=== PATIENT | female | born 1970 | race Caucasian/White ===

== ENCOUNTER 2017-05-11 09:32 | Outpatient (CLI) | payer BC | END 2017-05-11 09:33 | disposition home or self-care (01) | LOC: BICRAD 09:32 | PROVIDERS: ATTEND Family Medicine | DX: S89.91XA Unspecified injury of right lower leg, initial encounter (principal); W19.XXXA Unspecified fall, initial encounter ==

== ENCOUNTER 2017-05-19 15:08 | Outpatient (CLI) | payer BC ==
--- NOTE | 2017-05-19 20:45 | MRI ---
RIGHT SHOULDER MRI WITHOUT IV CONTRAST 05/19/17 HISTORY: 46-year-old female with right shoulder pain following a fall three weeks ago with concern for rotator cuff tear. There are some AC joint arthrosis changes with some mild fat stranding in the subacromial subdeltoid bursa. There appears to be a fairly high grade partial thickness tear of the supraspinatus tendon pro bably a nonretracted primarily bursal sided tear but this may well have a punctate full thickness com ponent but no evidence of associated retraction. There is some supraspinatus, infraspinatus, and subs capularis tendinopathy. There is some abnormal high signal change at the insertion of the subscapular is tendon, evidence for undersurface and delaminating tear/tears. There is some minimal surrounding e fahad at the subscapularis tendon insertion and extending along the margin of the inferior bicipital r ecess. Rotator cuff muscles demonstrate some moderate muscle volume loss of the upper subscapularis m uscle but the remaining muscles are unremarkable. There is some minimal abnormal increased signal ass ociated with the superior labrum chondral labral junction region in the mid portion extending posteri michael, evidence for a SLAP type tear. There is some focal marrow signal involving the lesser tuberosit y. Probably a subchondral cyst. IMPRESSION: High grade partial thickness tear versus a nonreactive punctate full thickness tear at the supraspina tus tendon insertion region. Undersurface and delaminating tear/tears of the subscapularis tendon wit h associated tendinopathy as well as moderate muscle volume loss of the upper portion of the subscapu andres muscle and some peritendinous edema around the insertion of the subscapularis tendon and extend ing down the bicipital recess. Intact biceps tendon. Evidence for abnormal signal involving the super ior labrum and associated SLAP tear. POS: [facility]
== END 2017-05-19 15:09 | disposition home or self-care (01) ==
LOC: SCSMRI 15:08
PROVIDERS: ATTEND Family Medicine
DX: S46.011A Strain of muscle(s) and tendon(s) of the rotator cuff of right shoulder, initial encounter (principal); S43.492A Other sprain of left shoulder joint, initial encounter; M75.92 Shoulder lesion, unspecified, left shoulder

== ENCOUNTER 2017-10-11 08:44 | Outpatient (CLI) | payer BC ==
[2017-10-11] MEDS ORDERED: Lidocaine 2% Jelly 5 ML TUBE ONE (09:00)
--- NOTE | 2017-10-11 11:02 | HP ---
DATE OF SERVICE: 10/11/2017 HISTORY OF PRESENT ILLNESS: Ms. Viky Urbina is a very pleasant 47-year-old who presents to [facility] for evaluation of an ulceration of the plantar surface of the right foot in the region of the first metatarsophalangeal joint. The patient states that the ulceration has been present [facility] e 04/2017. She states that the ulceration began after she removed tape from the bottom of her foot p ulling skin off with the tape. The patient has been seen by Dr. Lundberg for the ulceration since July of this year. The patient states that the wound has been treated with serial debridement. She stat es that she has taken p.o. antibiotics after cultures of the wound were obtained. She states that on two occasions she was also given antibiotics for an apparent infectious process associated with the wound. The patient states she was last seen by Dr. Lundberg on 09/21/2017. The patient states she has been performing dressing changes of the Kaelyn Gel followed by gauze and Coban. PAST MEDICAL HISTORY: 1. Hypertension. 2. Attention deficit hyperactivity disorder. 3. History of pancreatitis. 4. Ankylosing spondylitis. 5. Diabetes mellitus. PAST SURGICAL HISTORY: 1. TAHBSO. 2. Cholecystectomy. 3. Tubal ligation. 4. x2. 5. Surgery for stress urinary incontinence. 6. L4-L5 fusion. 7. Right shoulder surgery. MEDICATIONS: 1. Adderall. 2. Bystolic. 3. Doxepin. 4. Lexapro. 5. Gabapentin. 6. Hydrocodone. 7. Invokana. 8. Leflunomide. 9. Lisinopril/HCTZ. 10. Pramipexole. 11. Progesterone. 12. Remicade. 13. Savella. 14. Sulfasalazine. 15. Victoza. 16. Vyvanse. 17. Zolpidem. 18. vitamins. ALLERGIES: No known diagnosed allergies. SOCIAL HISTORY: Negative for tobacco use. The patient admits to the consumption of 1-2 drinks every 4-6 months. FAMILY HISTORY: Significant for diabetes mellitus. The patient's mother and father were both diagno sed with diabetes mellitus. Family history is also significant for coronary artery disease. The pat ient states that her mother and father were both diagnosed with coronary artery disease. PHYSICAL EXAMINATION: VITAL SIGNS: Temperature 98.3, pulse 89, respirations 19, blood pressure 130/79. Accu-Chek 143. GENERAL: A 47-year-old female sitting on table in examination room in no acute distress. HEENT: Normocephalic, atraumatic. NECK: No nuchal rigidity. CHEST: Clear to auscultation. CARDIOVASCULAR: Regular rate and rhythm. ABDOMEN: Soft. EXTREMITIES: An ulceration of the plantar surface of the right foot in the region of the first metat arsophalangeal joint is present. The dimensions of the wound are approximately 0.8 x 0.8 cm. Very l ittle granulation tissue is visible within the wound margins. Necrotic and nonviable tissue present within the wound margins was debrided with an excisional full-thickness debridement with the use of a curette. No purulent drainage is associated with the wound. Desiccated tissue and undermining at t he periphery of the wound were eliminated with the use of scissors. No erythema of the skin surround ing the wound is present. No maceration of the skin of the periwound is noted. A dorsalis pedis pul se is easily palpable on the right. No significant edema of the right foot is present on exam today. NEUROLOGIC: Grossly nonfocal. ASSESSMENT AND PLAN: 1. 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 Dressing changes of Promogran, Aquacel AG and bordered gauze will be initiated today. These dressing changes are to be performed on a daily basis after cleansing and irrigation. Arrangements will be made for the home delivery of dressing supplies. I will see Ms. Carlitos golden in 1 week. No antibiotics will be prescribed today based upon the appearance of the wound. The katie souza has also been given a prescription for a knee scooter. 2. Hypertension. 3. ADHD. 4. History of pancreatitis. 5. Ankylosing spondylitis. 6. Diabetes mellitus. The patient's Accu-Chek in clinic today is 143. The patient has been told th at for optimal wound healing, her blood glucoses should remain below 150.
== END 2017-10-11 08:45 | disposition home or self-care (01) ==
LOC: WCC 08:44
PROVIDERS: ATTEND Family Medicine
DX: E11.621 Type 2 diabetes mellitus with foot ulcer (principal); L97.519 Non-pressure chronic ulcer of other part of right foot with unspecified severity; I10 Essential (primary) hypertension; F90.9 Attention-deficit hyperactivity disorder, unspecified type; M45.9 Ankylosing spondylitis of unspecified sites in spine; E11.21 Type 2 diabetes mellitus with diabetic nephropathy; Z90.49 Acquired absence of other specified parts of digestive tract; Z98.890 Other specified postprocedural states; Z98.1 Arthrodesis status; Z79.899 Other long term (current) drug therapy
CPT/HCPCS: 11042; 36416; 99203; G0463

== ENCOUNTER 2017-10-16 20:24 | Inpatient (IN) | payer BC ==
[2017-10-16 21:39] LABS: #Basophils 0.1 thou/uL (0.0-0.2); #Eosinphils 0.1 thou/uL (0.0-0.7); #Lymphocytes 2.9 thou/uL (1.20-3.40); #Neutrophils 4.5 thou/uL (1.40-6.50); %Basophils 1.5 % (0.0-1.0); %Eosinophils 1.6 % (0.0-10.0); %Lymphocytes 33.1 % (21.0-51.0); %Monocytes 11.8 % (0.0-10.0); Hemoglobin 13.8 g/dL (12.0-16.0); Mean Corpuscular Hemoglobin 30.6 pg (27.0-31.0); Mean Corpuscular Volume 90.1 fl (81.0-99.0); Platelet Count 240 thou/uL (130-400); RBC Distribution Width 12.9 % (11.5-14.5); Red Blood Cell (RBC) Count 4.49 mill/uL (4.20-5.40); White Blood Cell (WBC) Count 8.7 thou/uL (4.8-10.8)
[2017-10-16 21:47] LABS: PTT 26.9 SEC (22.9-36.1); Prothrombin Time 13.1 SEC (12.0-14.7)
[2017-10-16 21:57] LABS: ALT (SGPT) 98 U/L (8-55); AST (SGOT) 63 U/L (5-34); Albumin 4.8 g/dL (3.5-5.0); Alkaline Phosphatase 92 U/L (40-150); Anion Gap 17 mmol/L (10-20); BUN (Urea Nitrogen) 20 mg/dL (7.0-18.7); Bilirubin, Total 0.5 mg/dL (0.2-1.2); Calc. Creatinine Clearance 0 mL/min (70-130); Calcium 10.4 mg/dL (7.8-10.44); Carbon Dioxide 25 mmol/L (22-29); Chloride 101 mmol/L (98-107); Estimated GFR-MDRD 48; Globulin 3.8 g/dL (2.4-3.5); Glucose 91 mg/dL (70-105); Lipase 63 U/L (8-78); Potassium 4.3 mmol/L (3.5-5.1); Protein, Total 8.6 g/dL (6.0-8.3); Sodium 139 mmol/L (136-145)
[2017-10-16] MEDS ORDERED: Morphine 5 MG/ML SYRINGE ONE (22:26)
[2017-10-16] MEDS ORDERED: Ondansetron HCl/PF 4 MG/2 ML Vial ONE (22:26)
[2017-10-16] MEDS ORDERED: Ciprofloxacin Lactate/D5W 400 mg/200 ml Premix ONE (22:41)
[2017-10-16] MEDS ORDERED: metroNIDAZOLE 500 MG/100 ML BAG ONE (22:41)
--- NOTE | 2017-10-16 22:44 | CT ---
ABDOMEN CT WITHOUT CONTRAST: PELVIC CT WITHOUT CONTRAST: HISTORY: Left lower quadrant pain. GI bleed. COMPARISON: 12/05/2010 TECHNIQUE: Abdomen and pelvis CT is performed without contrast. Coronal reformatted images are submitted for in terpretation. FINDINGS: ABDOMEN: The lung bases are clear. Normal heart size. No pericardial effusion. The descending tho racic aorta and abdominal aorta have a normal caliber. No periaortic fat stranding. The gallbladder is surgically absent. Limited evaluation of the solid organs due to lack of IV contrast. Hypoatten uation of the liver due to hepatic steatosis. The spleen, pancreas, and adrenal glands are grossly u nremarkable. No gastrohepatic, retrocrural, or periportal lymphadenopathy. No mesenteric mass, lymp hadenopathy, free air, or free fluid. Bilaterally, no hydronephrosis, nephrolithiasis, or perinephri c fat stranding. The bilateral ureters have normal caliber. No hydroureter, periureteral fat strand ing, or ureterolithiasis. Limited evaluation of the alimentary canal due to lack of oral contrast. Gastric mucosa, duodenum, and multiple normal caliber small bowel loops are noted. The ileocecal nicholas ction is normal. Normal caliber appendix. Scattered fecal material in a nondistended, nondilated co glenda. PELVIS: The uterus is surgically absent. No pelvic mass, lymphadenopathy, free air, or free fluid. The urinary bladder is unremarkable. There are uncomplicated fusion changes involving the L4 and L5 level. IMPRESSION: 1. No evidence of nephrolithiasis or obstructive uropathy. 2. Normal caliber appendix. POS: [facility]
[2017-10-17] MEDS ORDERED: Ondansetron HCl/PF 4 MG/2 ML Vial IVP PRN (00:15)
[2017-10-17] MEDS ORDERED: Dextrose 5 %-0.45 % NaCl 1,000 ML IV SCH (00:30)
[2017-10-17 01:01] VITALS: BMI 35.7
--- NOTE | 2017-10-17 01:09 | PDOC.FPRHP ---
- History of Present Illness Chief Complaint: BRBPR History of Present Illness: This is a 47 y/o F with PMHx of HTN, DM2, Ankylosing Spondylitis who presented to the ED due to sudden onset bright red blood per rectum. The patient reported that two days ago she started developing a sharp pain on the left side of her abdomen. It was a severe pain that she had to sit down for. The patient reports that the pain comes and goes, but has continued to hurt yesterday and had associated nausea with no vomiting. Then at 7pm yesterday evening she felt "wet " and went to the bathroom and passed a large blood clot per rectum, along with some bright red blood in the toilet bowl and on the toilet paper. The patient reports that since then she has continued to have blood whenever she wipes, but it is not as much as that first time, and no further clots. She reports that her abdominal pain has worsened and is an 8/10. She denies any fevers/chills. She has had an EGD and colonoscopy previously in 2013 for abdominal pain and they just found gastritis and hemorrhoids. She reports that she has known elevated liver enzymes and that she is scheduled for an ultrasound of the liver this Monday to further evaluate this. ED Course: The patient was evaluated in the ED in [facility] by Dr. Pérez and was given Cipro 400mg, Flagyl 500mg, Morphin 4mg, Zofran 4mg, and 1L NS - Allergies/Adverse Reactions Allergies Allergy/AdvReac Type Severity Reaction Status Date / Time No Known Allergies Allergy Verified 05/30/14 12:54 - Home Medications Medication Instructions Recorded Confirmed Type Lisinopril/Hydrochlorothiazide 2 tab PO DAILY 11/30/12 10/17/17 History [Lisinopril-Hctz 20-12.5 mg Tab] Dextroamphetamine/Amphetamine 10 mg PO DAILY PRN 04/08/14 10/17/17 History [Adderall] Doxepin HCl [Sinequan] 50 mg PO HS 04/08/14 10/17/17 History Escitalopram Oxalate [Lexapro] 40 mg PO DAILY 04/08/14 10/17/17 History Milnacipran HCl [Savella] 100 mg PO BID 04/08/14 10/17/17 History Nebivolol HCl [Bystolic] 10 mg PO QPM 05/30/14 10/17/17 History Progesterone,Micronized 100 mg PO HS 05/30/14 10/17/17 History [Progesterone] Zolpidem Tartrate [Ambien CR] 12.5 mg PO HS 05/30/14 10/17/17 History Canagliflozin [Invokana] 300 mg DAILY 10/17/17 10/17/17 History Gabapentin [Gabapentin] 600 mg HS 10/17/17 10/17/17 History Gabapentin [Neurontin] 400 mg HS 10/17/17 10/17/17 History HYDROcodone Bit/APAP 10/325 [[place]] 1 tab Q6HR 10/17/17 10/17/17 History Leflunomide [Arava] 10 mg HS 10/17/17 10/17/17 History Liraglutide [Victoza 3-Shahbaz] 1.8 mg QPM 10/17/17 10/17/17 History Lisdexamfetamine Dimesylate 60 mg PO DAILY PRN 10/17/17 10/17/17 History [Vyvanse] Pramipexole Di-HCl [Pramipexole 1 tab HS 10/17/17 10/17/17 History Dihydrochloride] sulfaSALAzine [Azulfidine] 1,000 mg BID 10/17/17 10/17/17 History - History PMHx: 1. HTN 2. DM2 3. Ankylosing Spondylitis 4. Fibromyalgia PSHx: 1. x2 2. BTL 3. Hysterectomy 4. Cholecystectomy 5. R Rotator Cuff sx 6. L4-L5 fusion 7. Bladder sling FHx: Mom and Dad - DM2 Social: Drinks socially, denies tobacco or drug use PCP: Dr. Lundberg - Review of Systems General: denies: fever/chills, weight/appetite/sleep changes Eyes: denies: eye pain, vision changes ENT: denies: nasal congestion, rhinorrhea Respiratory: denies: cough, shortness of breath Cardiovascular: denies: chest pain, palpitation Gastrointestinal: reports: nausea, diarrhea, abdominal pain, GI bleeding. denies: vomiting, constipation Genitourinary: denies: dysuria, polyuria Skin: denies: rashes, lesions Musculoskeletal: reports: pain, tenderness Neurological: denies: numbness, weakness Psychological: denies: anxiety, depression - Vital signs BP: 95/60 HR: 80 RR: 20 Tmax: 98.4 Pox: 96% on RA Wt: 113kg - Physical Exam Constitutional: NAD, awake, alert and oriented, well developed HEENT: normocephalic and atraumatic, PERRLA, EOMI, grossly normal vision, grossly normal hearing, normal nasal mucosa, MMM, oropharynx clear Neck: supple, no LAD Heart: RRR, normal S1/S2, no murmurs/rubs/gallops, pulses present, no edema Lungs: CTAB, no respiratory distress, good air movement, no rales/rhonchi, no wheezing -Abdomen: soft, tender to palpation in Left upper quadrant and left lower quadrant. No rebound or guarding. Normoactive bowel sounds Musculoskeletal: normal structure, normal tone Neurological: no focal deficit, CN II-XII intact Skin: good turgor, capillary refill <2 seconds Heme/Lymphatic: no unusual bruising or bleeding, no purpura Psychiatric: normal mood and affect, good judgment and insight, intact recent and remote memory FMR H&P: Results - Labs Result Diagrams: 10/17/17 04:44 10/17/17 04:44 Lab results: WBC 8.7 thou/uL (4.8-10.8) 10/16/17 20:30 Hgb 13.8 g/dL (12.0-16.0) 10/16/17 20:30 Hct 40.5 % (36.0-47.0) 10/16/17 20:30 MCV 90.1 fl (81.0-99.0) 10/16/17 20:30 Plt Count 240 thou/uL (130-400) 10/16/17 20:30 Neutrophils % 52.0 % (42.0-75.0) 10/16/17 20:30 Sodium 139 mmol/L (136-145) 10/16/17 20:30 Potassium 4.3 mmol/L (3.5-5.1) 10/16/17 20:30 Chloride 101 mmol/L (98-107) 10/16/17 20:30 Carbon Dioxide 25 mmol/L (22-29) 10/16/17 20:30 BUN 20 mg/dL (7.0-18.7) H 10/16/17 20:30 Creatinine 1.20 mg/dL (0.6-1.1) H 10/16/17 20:30 Glucose 91 mg/dL (70-105) 10/16/17 20:30 Lactic Acid 1.6 mmol/L (0.5-2.2) 10/16/17 20:30 Calcium 10.4 mg/dL (7.8-10.44) 10/16/17 20:30 Total Bilirubin 0.5 mg/dL (0.2-1.2) 10/16/17 20:30 AST 63 U/L (5-34) H 10/16/17 20:30 ALT 98 U/L (8-55) H 10/16/17 20:30 Alkaline Phosphatase 92 U/L (40-150) 10/16/17 20:30 Serum Total Protein 8.6 g/dL (6.0-8.3) H 10/16/17 20:30 Albumin 4.8 g/dL (3.5-5.0) 10/16/17 20:30 Lipase 63 U/L (8-78) 10/16/17 20:30 - Radiology Interpretation CT scan - abdomen Status: report reviewed by me Additional comment: No acute process visualized FMR H&P: A/P - Problem List (1) Acute lower GI bleeding Current Visit: Yes Status: Acute Code(s): K92.2 - GASTROINTESTINAL HEMORRHAGE, UNSPECIFIED (2) Diverticulitis Current Visit: Yes Status: Acute Code(s): K57.92 - DVTRCLI OF INTEST, PART UNSP, W/O PERF OR ABSCESS W/O BLEED (3) CHRISTIANO (acute kidney injury) Current Visit: Yes Status: Acute Code(s): N17.9 - ACUTE KIDNEY FAILURE, UNSPECIFIED (4) HTN (hypertension) Current Visit: Yes Status: Acute Code(s): I10 - ESSENTIAL (PRIMARY) HYPERTENSION Qualifiers: Hypertension type: essential hypertension Qualified Code(s): I10 - Essential (primary) hypertension (5) DM2 (diabetes mellitus, type 2) Current Visit: Yes Status: Acute Qualifiers: Diabetes mellitus track mechanic insulin use: without track mechanic use Diabetes mellitus complication status: without complication Qualified Code(s): E11.9 - Type 2 diabetes mellitus without complications (6) Ankylosing spondylitis Current Visit: Yes Status: Acute Code(s): M45.9 - ANKYLOSING SPONDYLITIS OF UNSPECIFIED SITES IN SPINE Qualifiers: Ankylosing spondylitis location: unspecified site of spine Qualified Code(s ): M45.9 - Ankylosing spondylitis of unspecified sites in spine (7) Transaminitis Current Visit: Yes Status: Acute Code(s): R74.0 - NONSPEC ELEV OF LEVELS OF TRANSAMNS & LACTIC ACID DEHYDRGNSE - Plan Acute Lower GI Bleed 2/2 Diverticulitis Patient has severe LLQ pain and hematochezia, making this most likely. Hb stable at this time. FOBT positive. -Will treat with Cipro and Flagyl -Trend H/H -LR @ 155 -Consult GI if acute drop in H/H, would likely benefit from outpt f/u with GI -Protonix for upper GI protection as pt has h/o gastritis in her chart and pt reports a h/o PUD -NPO CHRISTIANO Pt has unknown baseline. Cr 1.2 this AM, likely 2/2 dehydration s/p 1L NS -LR @ 155 -Monitor Transaminitis The patient has known transaminitis and is getting this worked up with outpatient US on Monday -Have pt keep this US appointment HTN -Monitor DM2 Per the patient, her most recent A1c was below goal. -Accuchecks ACHS Ankylosing Spondylitis -Pt NPO for now, but will continue home meds when allowing her to eat VTE ppx: SCD's as pt is actively bleeding Code Status: full Disposition/LOS: Admit to medical, length of stay likely 2 days FMR H&P: Upper Level - Pertinent history 47 yo F with PMH fibromyalgia, PUD presents with 1 day of rectal bleeding. Passed dark clots in her stool early this evening, was instructed to come to ER , and had another bloody bowel movement. Denies any dizziness, lightheadedness, CP, or SOB, but has had some LLQ pain today. No N/V, F/Ch. Was diagnosed with PUD by after ulcers were found on an EGD about 10 years ago. States she had a normal colonoscopy sometime before that EGD, but unsure when exactly. - Pertinent findings PE: T: 98.6 P: 80 BP: 95/60 RR:20 100% on RA Gen: [place] female in NAD HEENT: PERRL, EOMI, MMM, no lymphadenopathy or thyromegaly CV: RRR no murmurs, distal pulses intact Pulm: CTAB, no wheezes or rhonchi Abd: soft, TTP in LLQ, nondistended, BS present Ext: no cyanosis or edema MSK: FLEMING well, no joint or muscle pain or swelling Neuro: CN 2-12 intact, normal sensation Skin: no rashes or lesions Psych: A&O x3, appropriate in conversation - Plan Date/Time: 10/17/17 0109 47 yo F presenting with hematochezia. 1) Diverticulitis: Will treat empirically with cipro and metronidazole. NPO, continue IVFs. FOBT positive, consider GI consult in the AM if H/H drop significantly or if she becomes symptomatic from her anemia. Otherwise would benefit from outpt f/u with GI. 2) CHRISTIANO: continue IVFs, trend BMP 3) transaminitis: suspect this is due to volume depletion, but if not improved by IVFs in AM, consider checking RUQ US 4) Fibromyalgia: Continue home medications 5) Chronic pain: suspect this is 2/2 spinal fusion surgery, continue home meds 6) PUD: PPI 7) HTN: continue home meds 8) DM2: check a1c, accuchecks qAC/HS, continue home meds 9) ankylosing spondylitis: continue home DMARDs I, [Simone Short], have evaluated this patient and agree with findings/plan as outlined by wireless internet installer resident. Pertinent changes/additions are listed here. Attending Addendum - Attending Addendum Date/Time: 10/17/17 0630 I personally evaluated the patient and discussed the management with Dr. Mckenzie/ Han. I agree with the History, Examination, Assessment and Plan documented above with any addition or exceptions noted below. Patient with history of multiple abdominal surgeries, DM, HTN, Ankylosing Spondylitis on Remicade therapy presenting with 2 day onset of LLQ abdominal pain. Patient reports routinely having abnormal bowel movements with mixed stool and mucous, as well as chronic intermittent abdominal cramping. However, she reports that over the last 2 days she has had increasing pain in the LLQ, sharp, episodic, and associated with passage of blood clot last night. She reports loose stools over the last 2 days, but has not voided again since passage of blood. Reports that pain comes and goes, currently getting worse. Denies worsening with food, but does report nausea and poor appetite over last 2 days. Denies fevers, chills, preceding illness. Denies history of or personal history of IBD. She had overall normal colonoscopy in 2013. Patient exam pertinent for low normal BP but otherwise normal vitals signs. She has some mild tenderness to palpation RLQ and moderate TTP LLQ. No rebound but voluntary guarding. Bowel sounds normal. Rectal exam deferred as previously done. Labs are pertinent for Decrease in Hgb from 13.[address] F[address]T positive[address] CT abdomen stone protocol as performed by [facility] non-revealing. Patient admitted at this time for A/P: 1. Acute lower GI bleeding likely 2/2 unspecified colitis versus diverticulitis (less likely), 2. Mild asymptomatic anemia, 3. HTN, 4. DM2, 5. Ankylosing Spondylitis. Will start therapy with LR, Cipro and Flagyl, and pain control as needed. Patient to be kept NPO and will likely consult GI this morning as her blood counts have dropped somewhat compared to what I would expect with the amount of IV fluids she received. Will administer Protonix as well as history of gastritis but this likely related to lower GI pathology. Need to consider IBD in patient with history of seronegative spondyloarthropathy. Continue serial H/H. Would not expect serious pathology as normal colonoscopy in 2013. Blood sugars will be kept controlled with sliding scale while patient NPO. Goal blood sugar less than 150 due to her coexisiting diabetic foot wound. Wound care to be consulted.
[2017-10-17] MEDS ORDERED: Dextrose 50% Abboject 50 ML SYRINGE SLOW IVP PRN (01:42)
[2017-10-17] MEDS ORDERED: Dextrose 5% in Water 1,000 ML IV PRN (01:42)
[2017-10-17] MEDS ORDERED: Pantoprazole 40 MG VIAL IVP SCH (02:00)
[2017-10-17] MEDS: Lactated Ringer's 1,000 ML IV SCH ×4 (02:11→21:10)
[2017-10-17 02:17] LABS: Hemoglobin 12.1 g/dL (12.0-16.0); Mean Corpuscular HGB CONC 33.6 g/dL (32.0-36.0); Mean Platelet Volume 8.3 fL (7.4-10.4); Platelet Count 209 thou/uL (130-400); RBC Distribution Width 13.2 % (11.5-14.5); Red Blood Cell (RBC) Count 3.91 mill/uL (4.20-5.40); White Blood Cell (WBC) Count 8.7 thou/uL (4.8-10.8)
[2017-10-17] MEDS ORDERED: metroNIDAZOLE 500 MG in Premix Bag 1 BAG IVPB SCH (04:00)
[2017-10-17 05:13] LABS: #Basophils 0.1 thou/uL (0.0-0.2); #Eosinphils 0.2 thou/uL (0.0-0.7); #Lymphocytes 2.8 thou/uL (1.20-3.40); %Basophils 0.9 % (0.0-1.0); %Eosinophils 2.4 % (0.0-10.0); %Lymphocytes 39.9 % (21.0-51.0); %Monocytes 14.2 % (0.0-10.0); %Neutrophils 42.6 % (42.0-75.0); Hemoglobin 11.7 g/dL (12.0-16.0); Mean Corpuscular HGB CONC 33.5 g/dL (32.0-36.0); Mean Corpuscular Hemoglobin 30.9 pg (27.0-31.0); Mean Corpuscular Volume 92.1 fl (81.0-99.0); Mean Platelet Volume 8.1 fL (7.4-10.4); Platelet Count 198 thou/uL (130-400); RBC Distribution Width 13.3 % (11.5-14.5)
[2017-10-17 05:20] LABS: Anion Gap 9 mmol/L (10-20); BUN (Urea Nitrogen) 18 mg/dL (7.0-18.7); Calc. Creatinine Clearance 132 mL/min (70-130); Calcium 9.1 mg/dL (7.8-10.44); Carbon Dioxide 26 mmol/L (22-29); Chloride 107 mmol/L (98-107); Estimated GFR-MDRD 64; Glucose 81 mg/dL (70-105); Potassium 4.3 mmol/L (3.5-5.1); Sodium 138 mmol/L (136-145)
[2017-10-17] MEDS: metroNIDAZOLE 500 MG in Premix Bag 1 BAG IVPB SCH ×2 (05:30→13:33)
[2017-10-17] MEDS: Pantoprazole 40 MG VIAL IVP SCH ×2 (08:28→20:56)
--- NOTE | 2017-10-17 08:45 | PDOC.FM ---
- Subjective Subjective: Patient was seen in bed. She noted she had some blood on wiping herself, but no blood in BM. She endorse left sided abd pain that is continuing. Denies fever, chills, nausea, SOB, chest pain. - Objective MAR Reviewed: Yes Vital Signs & Weight: Vital Signs (12 hours) Temp Pulse Resp BP BP Pulse Ox 10/17/17 08:40 97.7 F 75 16 96 10/17/17 08:00 98.1 F 75 20 104/70 96 10/17/17 04:00 97.7 F 75 16 106/72 96 10/16/17 23:44 98.4 F 80 20 95/60 96 Weight Weight 113 kg I&O: 10/16/17 10/17/17 10/18/17 06:59 06:59 06:59 Intake Total 850 Balance 850 Result Diagrams: 10/17/17 04:44 10/17/17 04:44 <Guillermo Christiansen M - Last Filed: 10/17/17 08:43> - Objective Vital Signs & Weight: Vital Signs (12 hours) Temp Pulse Resp BP BP Pulse Ox 10/17/17 08:40 97.7 F 75 16 96 10/17/17 08:00 98.1 F 75 20 104/70 96 10/17/17 04:00 97.7 F 75 16 106/72 96 10/16/17 23:44 98.4 F 80 20 95/60 96 Weight Weight 113 kg I&O: 10/16/17 10/17/17 10/18/17 06:59 06:59 06:59 Intake Total 850 Balance 850 Result Diagrams: 10/17/17 04:44 10/17/17 04:44 <Fabian Cardozo R - Last Filed: 10/17/17 09:15> Phys Exam - Physical Examination Constitutional: NAD HEENT: moist MMs Neck: supple Respiratory: no wheezing, no rales, no rhonchi Cardiovascular: RRR, no significant murmur Gastrointestinal: soft, no distention Musculoskeletal: no edema Neurological: moves all 4 limbs Lymphatic: no nodes Psychiatric: normal affect Skin: no rash Deviation from normal: Diabetic foot ulcer on right foot <Guillermo Christiansen M - Last Filed: 10/17/17 08:43> Dx/Plan (1) Acute lower GI bleeding Code(s): K92.2 - GASTROINTESTINAL HEMORRHAGE, UNSPECIFIED Status: Acute Plan: GI consult, patient NPO at this time. Hgb is dropping slowly, patient not noticing any bleed and vital stable. Will continue scheduled h/h and monitor vitals. (2) CHRISTIANO (acute kidney injury) Code(s): N17.9 - ACUTE KIDNEY FAILURE, UNSPECIFIED Status: Acute Plan: Resolving (3) Ankylosing spondylitis Code(s): M45.9 - ANKYLOSING SPONDYLITIS OF UNSPECIFIED SITES IN SPINE Status: Acute QualifierTitle: Ankylosing spondylitis location: unspecified site of spine Qualified Code(s): M45.9 - Ankylosing spondylitis of unspecified sites in spine Plan: Chronic issue that is stable. Patient is at higher risk for automimmune disease , consider UC as possibility for lower GI bleed. (4) DM2 (diabetes mellitus, type 2) Status: Acute QualifierTitle: Diabetes mellitus manager intermediate insulin use: without senior living use Diabetes mellitus complication status: without complication Qualified Code(s): E11.9 - Type 2 diabetes mellitus without complications Plan: Continue ACHS accucheck. Glucose stable at this time. Resume diet once GI see patient. (5) HTN (hypertension) Code(s): I10 - ESSENTIAL (PRIMARY) HYPERTENSION Status: Acute QualifierTitle: Hypertension type: essential hypertension Qualified Code( s): I10 - Essential (primary) hypertension Plan: BP stable at this time. Hold HTN medication until GI see patient. (6) Transaminitis Code(s): R74.0 - NONSPEC ELEV OF LEVELS OF TRANSAMNS & LACTIC ACID DEHYDRGNSE Status: Acute Plan: Patient being work up as an out patient with US. Patient has it scheduled this monday. <ЕленаGuillermo M - Last Filed: 10/17/17 08:43> (1) Acute lower GI bleeding Code(s): K92.2 - GASTROINTESTINAL HEMORRHAGE, UNSPECIFIED Status: Acute (2) Diverticulitis Code(s): K57.92 - DVTRCLI OF INTEST, PART UNSP, W/O PERF OR ABSCESS W/O BLEED Status: Acute (3) CHRISTIANO (acute kidney injury) Code(s): N17.9 - ACUTE KIDNEY FAILURE, UNSPECIFIED Status: Acute (4) HTN (hypertension) Code(s): I10 - ESSENTIAL (PRIMARY) HYPERTENSION Status: Acute Qualifiers: Hypertension type: essential hypertension Qualified Code(s): I10 - Essential (primary) hypertension (5) DM2 (diabetes mellitus, type 2) Status: Acute Qualifiers: Diabetes mellitus manager intermediate insulin use: without senior living use Diabetes mellitus complication status: without complication Qualified Code(s): E11.9 - Type 2 diabetes mellitus without complications (6) Ankylosing spondylitis Code(s): M45.9 - ANKYLOSING SPONDYLITIS OF UNSPECIFIED SITES IN SPINE Status: Acute Qualifiers: Ankylosing spondylitis location: unspecified site of spine Qualified Code(s ): M45.9 - Ankylosing spondylitis of unspecified sites in spine (7) Transaminitis Code(s): R74.0 - NONSPEC ELEV OF LEVELS OF TRANSAMNS & LACTIC ACID DEHYDRGNSE Status: Acute <Fabian Cardozo - Last Filed: 10/17/17 09:15> Attending Addendum - Attending Addendum Date/Time: 10/17/1715 I personally evaluated the patient and discussed the management with Dr. Christiansen. I agree with the History, Examination, Assessment and Plan documented above with any addition or exceptions noted below. Patient admitted for treatment of acute lower GI bleed and likely colitis. Continue abx per my previous addendum this morning and consult GI. Pain control as needed. <Fabian Cardozo - Last Filed: 10/17/17 09:15>
--- NOTE | 2017-10-17 14:42 | CON ---
DATE OF CONSULTATION: 10/17/2017 HISTORY OF PRESENT ILLNESS: Patient is a 47-year-old female who was in her normal state of health until yesterday when she developed severe left-sided abdominal pain. She says she has not arias d previous pain such as this. She did have nausea, but no vomiting. Soon thereafter, the patient pa ssed a large clot and dark maroon colored blood. She has had multiple bowel movements of blood since . She has not had previous episodes of GI bleeding. The patient underwent an upper and lower endosc opy in 07/2009. At that time, both were within normal limits. She denies any blood thinners or any NSAIDs. PAST MEDICAL HISTORY: Includes hypertension, diabetes mellitus, ankylosing spondylitis, and fibromya lgia. PAST SURGICAL HISTORY: Includes , hysterectomy, bladder suspension surgery, cholecystectomy , shoulder surgery and back surgery. MEDICATIONS: Lisinopril/hydrochlorothiazide 20/12.5 two p.o. daily, Adderall 10 mg p.o. daily p.r.n. , Sinequan 50 mg p.o. at bedtime, Lexapro 40 mg p.o. daily, Savella 100 mg p.o. b.i.d., Bystolic 10 m g p.o. q.p.m., progesterone 100 mg p.o. at bedtime, Ambien 12.5 mg p.o. at bedtime, Invokana 300 mg p .o. daily, gabapentin 600 mg p.o. at bedtime, hydrocodone 1 p.o. q.6 hours p.r.n., Arava 10 mg p.o. a t bedtime, Victoza 1.8 mg p.o. q.p.m., and sulfasalazine 100 mg p.o. b.i.d. ALLERGIES: No known allergies. SOCIAL HISTORY: She drinks 2 beers every 4 months. Does not smoke. FAMILY HISTORY: Significant for colon cancer in her maternal grandmother. REVIEW OF SYSTEMS: CONSTITUTIONAL: No fever, chills, no weight loss. EYES: No blurred vision or d ouble vision. ENT: No sore throat or earache. CARDIOVASCULAR: No chest pain or palpitation. PULM ONARY: No shortness of breath, cough or wheezing. GASTROINTESTINAL: See above. GENITOURINARY: No hematuria or dysuria. MUSCULOSKELETAL: No joint pain or muscle weakness. SKIN: No rashes. NEURO LOGIC: No numbness or seizure activity. PHYSICAL EXAMINATION: GENERAL: Shows a pale, overweight female in no acute distress. VITAL SIGNS: Temperature 98.0, pulse 82, respiratory rate 18, blood pressure 104/70. HEENT: Unremarkable. NECK: Supple. CHEST: Clear. CARDIOVASCULAR: Regular rate and rhythm without murmurs or gallops. ABDOMEN: Soft. Tender in the left side without rebound or guarding. RECTAL: Deferred. EXTREMITIES: Normal. NEUROLOGIC: Nonfocal. LABORATORY DATA AND IMAGING DATA: Shows a white blood cell count of 10.0, hemoglobin 11.7, hematocri t 35.0. PT is 13.1 with an INR of 1.0. Chemistries on admission showed BUN 20, creatinine 1.2, AST of 63, ALT of 98, total protein 6.8, and globulin 3.8. Abdominal and pelvic CT without contrast show ed no kidney stones. ASSESSMENT: 1. Left-sided abdominal pain. 2. Gastrointestinal bleed. 3. Anemia secondary to gastrointestinal bleed. 4. Ankylosing spondylitis. RECOMMENDATIONS: 1. EGD with colonoscopy tomorrow. 2. Begin clear liquids. 3. Serial hemoglobin and hematocrit.
[2017-10-17] MEDS ORDERED: GoLYTELY 4,000 ml Bottle PO SCH (18:00)
[2017-10-17 19:31] LABS: #Eosinphils 0.2 thou/uL (0.0-0.7); #Lymphocytes 2.3 thou/uL (1.20-3.40); #Monocytes 0.8 thou/uL (0.11-0.59); %Basophils 0.8 % (0.0-1.0); %Eosinophils 3.8 % (0.0-10.0); %Lymphocytes 43.5 % (21.0-51.0); %Monocytes 14.8 % (0.0-10.0); %Neutrophils 37.1 % (42.0-75.0); Hemoglobin 11.7 g/dL (12.0-16.0); Mean Corpuscular Hemoglobin 30.3 pg (27.0-31.0); Mean Platelet Volume 8.5 fL (7.4-10.4); Platelet Count 186 thou/uL (130-400); RBC Distribution Width 13.1 % (11.5-14.5); Red Blood Cell (RBC) Count 3.86 mill/uL (4.20-5.40); White Blood Cell (WBC) Count 5.3 thou/uL (4.8-10.8)
[2017-10-17] MEDS: Ondansetron HCl/PF 4 MG/2 ML Vial IVP PRN (21:01)
[2017-10-17 22:42] LABS: Hemoglobin 13.2 g/dL (12.0-16.0); Mean Corpuscular HGB CONC 33.5 g/dL (32.0-36.0); Mean Corpuscular Hemoglobin 30.6 pg (27.0-31.0); Mean Corpuscular Volume 91.5 fl (81.0-99.0); Mean Platelet Volume 8.1 fL (7.4-10.4); Platelet Count 220 thou/uL (130-400); RBC Distribution Width 13.1 % (11.5-14.5); Red Blood Cell (RBC) Count 4.32 mill/uL (4.20-5.40); White Blood Cell (WBC) Count 6.5 thou/uL (4.8-10.8)
[2017-10-17 22:43] LABS: Eosinophils 7 % (0-10); Lymphocytes 44 % (21-51); MDiff Complete? YES; Metamyelocyte 1 % (0-0); Monocytes 13 % (0-10); Neutrophil 35 % (42-75); PLT Morphology Comment Appears Adequate
[2017-10-18] MEDS ORDERED: Zolpidem Tartrate 5 MG TAB PO SCH ×2 (00:15→21:00)
[2017-10-18] MEDS ORDERED: Doxepin HCl 25 MG CAP PO SCH ×2 (00:15→21:00)
[2017-10-18] MEDS: metroNIDAZOLE 500 MG in Premix Bag 1 BAG IVPB SCH ×3 (00:16→15:47)
[2017-10-18] MEDS: Lactated Ringer's 1,000 ML IV SCH ×3 (02:22→15:47)
[2017-10-18 05:21] LABS: Anion Gap 13 mmol/L (10-20); BUN (Urea Nitrogen) 13 mg/dL (7.0-18.7); Calc. Creatinine Clearance 132 mL/min (70-130); Carbon Dioxide 26 mmol/L (22-29); Chloride 105 mmol/L (98-107); Estimated GFR-MDRD 64; Glucose 99 mg/dL (70-105); Sodium 140 mmol/L (136-145)
[2017-10-18 06:26] LABS: #Basophils 0.1 thou/uL (0.0-0.2); #Eosinphils 0.2 thou/uL (0.0-0.7); #Lymphocytes 2.3 thou/uL (1.20-3.40); #Monocytes 0.8 thou/uL (0.11-0.59); #Neutrophils 2.2 thou/uL (1.40-6.50); %Basophils 0.9 % (0.0-1.0); %Eosinophils 3.8 % (0.0-10.0); %Lymphocytes 41.4 % (21.0-51.0); %Monocytes 14.8 % (0.0-10.0); %Neutrophils 39.1 % (42.0-75.0); Hemoglobin 11.3 g/dL (12.0-16.0); Mean Corpuscular HGB CONC 33.1 g/dL (32.0-36.0); Mean Corpuscular Hemoglobin 30.3 pg (27.0-31.0); Mean Corpuscular Volume 91.7 fl (81.0-99.0); Mean Platelet Volume 8.5 fL (7.4-10.4); Platelet Count 192 thou/uL (130-400); RBC Distribution Width 13.1 % (11.5-14.5); Red Blood Cell (RBC) Count 3.71 mill/uL (4.20-5.40); White Blood Cell (WBC) Count 5.6 thou/uL (4.8-10.8)
[2017-10-18] MEDS: Ondansetron HCl/PF 4 MG/2 ML Vial IVP PRN ×2 (06:31→12:15)
[2017-10-18] MEDS: Pantoprazole 40 MG VIAL IVP SCH (09:04)
--- NOTE | 2017-10-18 11:05 | PDOC.FM ---
- Subjective Subjective: Patient found in bed, resting comfortably. Denies any bleeding, but still has some left sided abd pain. - Objective MAR Reviewed: Yes Vital Signs & Weight: Vital Signs (12 hours) Temp Pulse Resp BP Pulse Ox 10/18/17 10:35 80 20 119/73 95 10/18/17 08:00 98.1 F 85 20 148/79 H 95 10/18/17 04:00 98.6 F 80 18 120/77 96 10/18/17 00:00 97.8 F 79 18 111/74 94 L Weight Admit Weight 113 kg Weight 113 kg I&O: 10/17/17 10/18/17 10/19/17 06:59 06:59 06:59 Intake Total 850 2275 Balance 850 2275 Result Diagrams: 10/18/17 03:55 10/18/17 03:57 <Guillermo Christiansen M - Last Filed: 10/18/17 11:03> - Objective Vital Signs & Weight: Vital Signs (12 hours) Temp Pulse Resp BP Pulse Ox 10/18/17 12:18 98.1 F 79 20 124/75 95 10/18/17 10:35 80 20 119/73 95 10/18/17 09:00 98.1 F 85 20 95 10/18/17 08:00 98.1 F 85 20 148/79 H 95 10/18/17 04:00 98.6 F 80 18 120/77 96 Weight Admit Weight 113 kg Weight 113 kg I&O: 10/17/17 10/18/17 10/19/17 06:59 06:59 06:59 Intake Total 850 2275 Balance 850 2275 Result Diagrams: 10/18/17 03:55 10/18/17 03:57 <Fabian Cardozo R - Last Filed: 10/18/17 14:29> Phys Exam - Physical Examination Constitutional: NAD HEENT: moist MMs Neck: no nodes, supple Respiratory: no wheezing, no rales, no rhonchi Cardiovascular: RRR, no significant murmur Gastrointestinal: soft, no distention Musculoskeletal: no edema Neurological: non-focal, moves all 4 limbs Lymphatic: no nodes <Guillermo Christiansen M - Last Filed: 10/18/17 11:03> Dx/Plan (1) Acute lower GI bleeding Code(s): K92.2 - GASTROINTESTINAL HEMORRHAGE, UNSPECIFIED Status: Acute Plan: GI consult, patient NPO at this time. Hgb stable and patient asymptomatic, GI plan to scope patient today (2) CHRISTIANO (acute kidney injury) Code(s): N17.9 - ACUTE KIDNEY FAILURE, UNSPECIFIED Status: Acute Plan: Resolved (3) Ankylosing spondylitis Code(s): M45.9 - ANKYLOSING SPONDYLITIS OF UNSPECIFIED SITES IN SPINE Status: Acute QualifierTitle: Ankylosing spondylitis location: unspecified site of spine Qualified Code(s): M45.9 - Ankylosing spondylitis of unspecified sites in spine Plan: Chronic issue that is stable. Patient is at higher risk for automimmune disease , consider UC as possibility for lower GI bleed. Hasnot complained of back pain. (4) DM2 (diabetes mellitus, type 2) Status: Acute QualifierTitle: Diabetes mellitus senior care insulin use: without senior care use Diabetes mellitus complication status: without complication Qualified Code(s): E11.9 - Type 2 diabetes mellitus without complications Plan: Continue ACHS accucheck. Glucose stable at this time. (5) HTN (hypertension) Code(s): I10 - ESSENTIAL (PRIMARY) HYPERTENSION Status: Acute QualifierTitle: Hypertension type: essential hypertension Qualified Code( s): I10 - Essential (primary) hypertension Plan: BP stable at this time. (6) Transaminitis Code(s): R74.0 - NONSPEC ELEV OF LEVELS OF TRANSAMNS & LACTIC ACID DEHYDRGNSE Status: Acute Plan: Patient being work up as an out patient with US. Patient has it scheduled this monday. <Guillermo Christiansen M - Last Filed: 10/18/17 11:03> (1) Acute lower GI bleeding Code(s): K92.2 - GASTROINTESTINAL HEMORRHAGE, UNSPECIFIED Status: Acute (2) Diverticulitis Code(s): K57.92 - DVTRCLI OF INTEST, PART UNSP, W/O PERF OR ABSCESS W/O BLEED Status: Acute (3) CHRISTIANO (acute kidney injury) Code(s): N17.9 - ACUTE KIDNEY FAILURE, UNSPECIFIED Status: Acute (4) HTN (hypertension) Code(s): I10 - ESSENTIAL (PRIMARY) HYPERTENSION Status: Acute Qualifiers: Hypertension type: essential hypertension Qualified Code(s): I10 - Essential (primary) hypertension (5) DM2 (diabetes mellitus, type 2) Status: Acute Qualifiers: Diabetes mellitus senior care insulin use: without watermelon harvesting supervisor use Diabetes mellitus complication status: without complication Qualified Code(s): E11.9 - Type 2 diabetes mellitus without complications (6) Ankylosing spondylitis Code(s): M45.9 - ANKYLOSING SPONDYLITIS OF UNSPECIFIED SITES IN SPINE Status: Acute Qualifiers: Ankylosing spondylitis location: unspecified site of spine Qualified Code(s ): M45.9 - Ankylosing spondylitis of unspecified sites in spine (7) Transaminitis Code(s): R74.0 - NONSPEC ELEV OF LEVELS OF TRANSAMNS & LACTIC ACID DEHYDRGNSE Status: Acute <Fabian Cardozo - Last Filed: 10/18/17 14:29> Attending Addendum - Attending Addendum Date/Time: 10/18/17 1428 I personally evaluated the patient and discussed the management with Dr. Chritsiansen. I agree with the History, Examination, Assessment and Plan documented above with any addition or exceptions noted below. Patient feeling improved. Continue antibiotics. She is scheduled for endoscopy today to further characterize the cause of her pain and GI bleeding. Blood counts stable. Await further recs after procedure. <Fabian Cardozo - Last Filed: 10/18/17 14:29>
[2017-10-18] MEDS ORDERED: metroNIDAZOLE 500 MG/100 ML BAG ONE (13:17)
[2017-10-18] MEDS ORDERED: Fentanyl 100 MCG/2 ML VIAL ONE (14:48)
[2017-10-18] MEDS ORDERED: Lidocaine 1% PF 5 ML VIAL ONE (15:14)
[2017-10-18] MEDS ORDERED: PROPOFOL 200 MG/20 ML VIAL ONE (15:14)
--- NOTE | 2017-10-18 15:21 | OP ---
PREOPERATIVE DIAGNOSES: 1. Gastrointestinal bleeding. 2. Left lower quadrant abdominal pain. PROCEDURE IN DETAIL: After informed consent was obtained, the patient was placed in the left lateral decubitus position. Anesthesia was administered per the Anesthesia Department. Forward-viewing end oscope was inserted into the esophagus under direct visualization with ease and passed to the second portion of the duodenum with ease. Second portion of the duodenum and duodenal bulb were normal. Th e pylorus, antrum, body, fundus, and cardia were normal except for some nonerosive gastritis. Biopsi es were taken from the antrum and the body of the stomach. Retroflexion in the stomach was normal. The esophagus was normal throughout. No blood was seen in the upper GI tract. ASSESSMENT: 1. Mild nonerosive gastritis - status post biopsy. 2. Otherwise normal esophagogastroduodenoscopy. RECOMMENDATIONS: 1. Await histopathology. 2. Proceed with colonoscopy. PROCEDURE: After informed consent was obtained, the patient was placed in the left lateral decubitus position. Anesthesia was administered per the Anesthesia Department. Forward-viewing endoscope was inserted into the rectum after perianal inspection and rectal exam were normal. This passed to the cecum with ease. The cecum, ileocecal valve, and appendiceal orifice were normal. The prep was good . The ascending, transverse, descending, sigmoid, and rectum were normal. Retroflexion in rectum wa s normal. ASSESSMENT: Normal colonoscopy. RECOMMENDATIONS: 1. Daily fiber supplementation. 2. A trial of Levsin for abdominal pain. 3. Stable from GI standpoint for discharge.
[2017-10-18 16:34] LABS: #Basophils 0.1 thou/uL (0.0-0.2); #Eosinphils 0.2 thou/uL (0.0-0.7); #Lymphocytes 2.1 thou/uL (1.20-3.40); #Monocytes 0.6 thou/uL (0.11-0.59); #Neutrophils 2.8 thou/uL (1.40-6.50); %Basophils 1.1 % (0.0-1.0); %Eosinophils 3.4 % (0.0-10.0); %Monocytes 10.5 % (0.0-10.0); %Neutrophils 48.1 % (42.0-75.0); Mean Corpuscular HGB CONC 34.2 g/dL (32.0-36.0); Mean Corpuscular Hemoglobin 31.1 pg (27.0-31.0); Mean Corpuscular Volume 91.1 fl (81.0-99.0); Mean Platelet Volume 8.1 fL (7.4-10.4); Platelet Count 207 thou/uL (130-400); Red Blood Cell (RBC) Count 3.87 mill/uL (4.20-5.40); White Blood Cell (WBC) Count 5.7 thou/uL (4.8-10.8)
[2017-10-18 16:43] VITALS: BP 139/80; TEMP 98.2
[2017-10-18] MEDS ORDERED: Hyoscyamine Sulfate 0.125 MG/5 ML UDCUP PO PRN (16:44)
--- NOTE | 2017-10-19 13:40 | DIS-2 ---
DATE OF ADMISSION: 10/16/2017 DATE OF DISCHARGE: 10/18/2017 RESIDENT: Dr. Guillermo Christiansen. ADMITTING ATTENDING: Dr. Fabian Cardozo. DISCHARGE ATTENDING: Dr. Fabian Cardozo. CONSULTATIONS: Dr. Rd Bassett. PROCEDURES: 1. Esophagogastroduodenoscopy with biopsy. Second portion of the duodenum and duodenal fold was normal. The pylorus, antrum, body, fundus, and cardia were normal except for nonerosive gastritis. Biopsy was taken from the antrum and body of the stomach. Retroflexion in the stomach was normal and esophageal was normal throughout. There was no bleeding seen in the upper GI tract. Specimen shows reactive gastropathy with an antral-type oxyntic mucosa. Background of focal interstitial-type metaplasia with an antral type mucosa negative for helicobacter-like organisms, negative for dysplasia. 2. Colonoscopy. Perianal inspection, cecum, ileocecal valve, and appendiceal orifices were normal. Transverse, ascending, descending, sigmoid, and rectum were normal. Retroflexion in rectum was normal. PRIMARY DIAGNOSES: 1. Active gastrointestinal bleed, now resolved 2. Acute kidney injury. SECONDARY DIAGNOSES: 1. Diabetes, type 2. 2. Hypertension. 3. Ankylosing spondylitis. 4. Transaminitis. 5. Seizure. DISCHARGE MEDICATIONS: 1. Levsin elixir 0.125 mg oral every 4 hours as needed for abd discomfort 2. Lisinopril-Hctz 20-12.5 mg, 2 tab oral daily 3. Doxepin HCL 50 mg oral bed time 4. Adderall 10 mg oral daily as needed 5. Lexapro 40 mg oral daily 6. Savella 100 mg oral twice daily 7. Nebivolol HCL 10 mg oral every evening 8. 12.5 mg oral bedtime 9. Progesterone 10 mg oral bedtime 10. Gabapentin 600 mg at bedtime 11. Sulfasalazine 1000 mg twice daily 12. Pramipexole 1 tablet bedtime 13. Leflunomide 10 mg at bedtime 14. Invokana 300 mg daily 15. Vyvanse 60 mg oral daily 16. Mcbee 10/325 q tab every 6 hours 17. Liraglutide 1.8 mg every evening HPI AND HOSPITAL COURSE 47F with PMHx of HTN, DM2 and ankylosing spondylitis presented for sudden bright red blood per rectum, associated with 2 days of left side abd pain. She had EGD and colonoscopy in 2013 that found gastritis and hemorrhoids. It was a severe pain that come and goes, associated with nausea. She had 1x of blood clot per rectum and blood when wiping herself. Her spotting has decreased prior to ER arrival, but she wanted to make sure there was nothing serious. Recently she is being worked up for elevated liver enzyme. CT scan was done, finding no acute processes. Her hgb was 13.8. Incidentally, she was found to have creatinine elevated above baseline in the ER. FOBT was positive. Due to left sided pain and bleed, felt likely to be diverticulitis. She was started on cipro and flagyl and transferred to the floor with consult placed for GI. GI evaluated her with colonscopy. Biopsy found non specific gastritis. Her Hgb remained steady during her stay and she had no further bleeds. GI recommended that patient try a course of Levsin as an outpatient and to follow up with them if she continues to have issues, but that no further GI work up is indicated at this time. DISPOSITION: Stable DISCHARGE INSTRUCTION 1. Location: To home 2. Diet: Diabetic diet 3. Activity: As tolerated 4. Follow up: Follow up with Dr. Lundberg in 1-2 week MTDD
--- NOTE | 2017-10-20 09:21 | PQF ---
[employer] Analyst [employer] GUALBERTO Galaviz JASON MD *shivani* [id number] [id number] CLINICAL DOCUMENTATION CLARIFICATION FORM: POST DISCHARGE Addendum to original discharge summary date: ____ Late entry note date: __ Please exercise your independent, professional judgment in responding to the clarification form. Clinical indicators are provided on the bottom of this form for your review. Discharge Summary - Active Gastrointestinal bleed. Consultation by Dr. Serjio Sultana - Anemia due to gastrointestinal bleed. Please clarify the acuity of the Anemia. Thank you. Please check appropriate box(s): [ ] Acute blood loss anemia [ ] Post-op anemia related to acute blood loss [ ] Anemia: [ ] Aplastic [ ] Nutritional [ ] Drug induced (specify) ___ [ ] Hemolytic [ ] Hereditary [ ] Acquired [ ] Autoimmune [ ] Non-autoimmune [ ] Enzyme disorder [ ] Chronic Anemia: [ ] Blood loss [ ] Hemolytic [ ] Simple [ ] Due to Vitamin B12 Deficiency [ ] Other [ ] Anemia of Chronic Disease (please specify) [ ] Anemia due to Neoplasm: [ ] Primary [ ] Secondary [ ] Anemia due to (please choose): [ ] Due to Chemotherapy [ ] Due to Radiotherapy [ ] Due to Immunotherapy [ ] Other diagnosis [ ] Unable to determine In addition, please specify: Present on Admission (POA): [ ] Yes [ ] No [ ] Unable to determine For continuity of documentation, please document condition throughout progress notes and discharge summary. Thank You. CLINICAL INDICATORS - SIGNS / SYMPTOMS / LABS Acute bleed Anemia Low hemoglobin and/or hematocrit Estimated blood loss Tachycardia RISK FACTORS Surgery Melena/Hematochezia TREATMENTS: EGD and Colonoscopy Blood stimulating drugs (Procrit, Iron) (This form is maintained as a part of the permanent medical record) 2014 [employer] All Rights Reserved [email or web address] [email or web address] [phone] MTDD
== END 2017-10-18 18:03 | disposition home or self-care (01) | DRG 378 ==
LOC: SCSER 20:24 → T4-B 23:28
PROVIDERS: ADMIT Student in an Organized Health Care Education/Training Program; ATTEND Student in an Organized Health Care Education/Training Program
PROC: 0DB68ZX Excision of Stomach, Via Natural or Artificial Opening Endoscopic, Diagnostic (ICD-10-PCS; principal; 2017-10-18)
PROC: 0DB78ZX Excision of Stomach, Pylorus, Via Natural or Artificial Opening Endoscopic, Diagnostic (ICD-10-PCS; 2017-10-18)
PROC: 0DJD8ZZ Inspection of Lower Intestinal Tract, Via Natural or Artificial Opening Endoscopic (ICD-10-PCS; 2017-10-18)
DX: K92.2 Gastrointestinal hemorrhage, unspecified (principal); N17.9 Acute kidney failure, unspecified; B96.89 Other specified bacterial agents as the cause of diseases classified elsewhere; I10 Essential (primary) hypertension; K29.70 Gastritis, unspecified, without bleeding; M45.9 Ankylosing spondylitis of unspecified sites in spine; M79.7 Fibromyalgia; R74.0 Nonspecific elevation of levels of transaminase and lactic acid dehydrogenase [LDH]; G89.29 Other chronic pain; R56.9 Unspecified convulsions; E11.621 Type 2 diabetes mellitus with foot ulcer; L97.519 Non-pressure chronic ulcer of other part of right foot with unspecified severity; D64.9 Anemia, unspecified; Z98.1 Arthrodesis status
CPT/HCPCS: 36415; 36416; 74176; 80048; 80053; 82274; 83605; 83690; 85025; 85027; 85610; 85730; 86850; 86900; 86901; 88305; 88312; 96361; 96365; 96375; J2270; A4216; C9113; J0744; J2001; J2405; J2704; J3010

== ENCOUNTER 2017-10-20 08:04 | Outpatient (CLI) | payer BC ==
--- NOTE | 2017-10-20 08:53 | ULT ---
SONOGRAM RIGHT UPPER QUADRANT: Date: 10/20/17 HISTORY: Abnormal liver function tests. FINDINGS: Gallbladder is surgically absent. Common duct 0.9 cm. Liver diffusely echogenic without focal mass or intrahepatic biliary dilatation. No free fluid. IMPRESSION: 1. Status post cholecystectomy. No evidence of biliary obstruction. 2. Hepatic steatosis. POS: [facility]
== END 2017-10-20 08:05 | disposition home or self-care (01) ==
LOC: SCSULT 08:04
PROVIDERS: ATTEND Internal Medicine Rheumatology
DX: K76.0 Fatty (change of) liver, not elsewhere classified (principal); Z90.49 Acquired absence of other specified parts of digestive tract
CPT/HCPCS: 76705

== ENCOUNTER 2017-10-25 10:08 | Outpatient (CLI) | payer BC ==
[2017-10-25] MEDS ORDERED: Lidocaine 2% Jelly 5 ML TUBE ONE (14:26)
[2017-10-25] MEDS ORDERED: Sodium Chloride 0.9% 15 ML NEB ONE (14:26)
--- NOTE | 2017-10-25 14:39 | PRG ---
DATE OF SERVICE: 10/25/2017 HISTORY: Ms. Viky Urbina is a very pleasant 47-year-old who presents to the [facility] for e valuation of an ulceration of the plantar surface of the right foot in the region of the first metata rsophalangeal joint. The patient previously stated that the ulceration had been present since . She stated that the ulceration began after she removed the tape from the bottom of her foot pulli ng skin off with the tape. The patient had been seen by Dr. Lundberg for the ulceration since July of this year. The patient stated that the wound had been treated with serial debridement. She stated t hat she had taken p.o. antibiotics after cultures of the wound were obtained. She stated that on 2 o ccasions, she was also given antibiotics for an apparent infectious process associated with the wound . The patient was apparently last seen by Dr. Lundberg on 09/21/2017. The patient stated that prior to being seen in the Wound Center, she had been performing dressing changes of AMERIGEL followed by gillian juarez and Scarlet. After being seen in the Wound Center, the patient was placed on dressing changes of Pr omogran, Aquacel, and bordered gauze on a daily basis after cleansing and irrigation. Since the nena ent's last visit to the Wound Center, Ms. Urbina states she was admitted to [facility] for GI bleeding. PHYSICAL EXAMINATION: VITAL SIGNS: Temperature 97.9, pulse 84, respirations 17, blood pressure 158/77. Accu-Chek 175. EXTREMITIES: An ulceration of the plantar surface of the right foot in the region of the first metat arsophalangeal joint is present. The dimensions of the wound are approximately 0.5 x 0.5 cm. Granul ation tissue is present within the wound margins. Necrotic and nonviable tissue present within the w ound margins was debrided with an excisional full-thickness debridement with the use of a curette. D esiccated tissue, callus, and undermining at the periphery of the wound were eliminated with the use of scissors. No purulent drainage is associated with the wound. No erythema of the skin surrounding the wound is present. No maceration of the skin of the periwound is noted. No significant edema of the right foot is present on exam today. ASSESSMENT AND PLAN: 1. 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 Dressing changes of Promogran, Aquacel AG and bordered gauze will be continued on a daily basis after cleansing and irrigation. Arrangements were previously made for the home del alon of dressing supplies. I will see Ms. Urbina again in one week. The patient was previously given a prescription for a knee scooter. 2. Hypertension. 3. Attention deficit hyperactivity disorder. 4. History of pancreatitis. 5. Ankylosing spondylitis. 6. Diabetes mellitus. The patient's Accu-Chek in clinic today is 175. The patient has been reminde d that for optimal wound healing, her blood glucoses should remain below 150.
== END 2017-10-25 10:09 | disposition home or self-care (01) ==
LOC: WCC 10:08
PROVIDERS: ATTEND Family Medicine
DX: E11.621 Type 2 diabetes mellitus with foot ulcer (principal); L97.419 Non-pressure chronic ulcer of right heel and midfoot with unspecified severity; I10 Essential (primary) hypertension; M45.9 Ankylosing spondylitis of unspecified sites in spine; E11.42 Type 2 diabetes mellitus with diabetic polyneuropathy
CPT/HCPCS: 11042; 36416; A4218

== ENCOUNTER 2018-09-14 07:54 | Outpatient (CLI) | payer BC ==
--- NOTE | 2018-09-14 09:31 | MMO ---
Bilateral MAMMO Bilat Screen [facility]. CLINICAL HISTORY: Patient is 47 years old and is seen for screening. The patient has the following family history of breast cancer: maternal aunt, inflammatory carcinoma and maternal grandmother. The patient has no personal history of cancer. VIEWS: The views performed were: bilateral craniocaudal with tomosynthesis; bilateral mediolateral oblique with tomosynthesis; and bilateral exaggerated craniocaudal. FILMS COMPARED: The present examination has been compared to prior imaging studies performed at [facility] on 02/01/2008 and 03/06/2015. MAMMOGRAM FINDINGS: The breasts are heterogeneously dense, which could obscure a lesion on mammography. There are no suspicious masses, suspicious calcifications, or new areas of architectural distortion. IMPRESSION: THERE IS NO MAMMOGRAPHIC EVIDENCE OF MALIGNANCY. A ROUTINE FOLLOW-UP MAMMOGRAM IN 1 YEAR IS RECOMMENDED. THE RESULTS OF THIS EXAM WERE SENT TO THE PATIENT. ACR BI-RADS Category 1 - Negative MAMMOGRAPHY NOTE: 1. A negative mammogram report should not delay a biopsy if a dominant of clinically suspicious mass is present. 2. Approximately 10% to 15% of breast cancers are not detected by mammography. 3. Adenosis and dense breasts may obscure an underlying neoplasm.
== END 2018-09-14 07:55 | disposition home or self-care (01) ==
LOC: BICMAMMO 07:54
PROVIDERS: ATTEND Family Medicine
DX: Z12.31 Encounter for screening mammogram for malignant neoplasm of breast (principal); Z80.3 Family history of malignant neoplasm of breast
CPT/HCPCS: 77063; 77067

== ENCOUNTER 2019-01-28 07:21 | Outpatient (CLI) | payer BC ==
--- NOTE | 2019-01-28 10:19 | ULT ---
RIGHT UPPER QUADRANT ULTRASOUND: COMPARISON: 10/20/2017. INDICATION: Abnormal laboratory values. FINDINGS: The patient is status post cholecystectomy. The common duct measures 7-8 mm which is likely on the b asis of reservoir effect, and is stable. There remains diffuse increased echogenicity of the hepatic parenchyma without interval development of a focal mass. No ascites. IMPRESSION: 1. Status post cholecystectomy. 2. Findings indicate hepatic steatosis. POS: TPC
== END 2019-01-28 07:22 | disposition home or self-care (01) ==
LOC: ULT 07:21
PROVIDERS: ATTEND Internal Medicine
DX: R74.0 Nonspecific elevation of levels of transaminase and lactic acid dehydrogenase [LDH] (principal); Z90.49 Acquired absence of other specified parts of digestive tract
CPT/HCPCS: 36415; 76705; 80053; 80061; 80074; 82043; 83036; 84443; 85025

== ENCOUNTER 2019-02-14 15:24 | Outpatient (CLI) | payer BC ==
--- NOTE | 2019-02-14 16:05 | ULT ---
US Renal Bilateral STANDARD: 02/14/2019 12:00 AM CLINICAL HISTORY: Chronic kidney disease. STUDY: Renal ultrasound COMPARISON: CT abdomen/pelvis 10/16/2017 FINDINGS: Right kidney: Echogenicity: Normal. Masses/cysts: None. Hydronephrosis: None. There is an extrarenal pelvis on the right. Calcifications: None. Length: 10.8 cm Left kidney: Echogenicity: Normal. Masses/cysts: There may be a small 1.6 cm cyst in the hilar region of the left kidney. Hydronephrosis: None. Calcifications: None. Length: 12.3 cm Limited visualization of the urinary bladder is unremarkable. IMPRESSION: 1. Possible left renal cyst 2. Right extrarenal pelvis
== END 2019-02-14 15:25 | disposition home or self-care (01) ==
LOC: SCSULT 15:24
PROVIDERS: ATTEND Internal Medicine
DX: N18.3 Chronic kidney disease, stage 3 (moderate) (principal)
CPT/HCPCS: 76770

== ENCOUNTER 2019-03-22 19:22 | Observation (INO) | payer BC ==
[2019-03-22] MEDS ORDERED: Aspirin Chewable 81 MG TAB ONE (19:37)
[2019-03-22 19:53] LABS: #Basophils 0.1 thou/uL (0.0-0.2); #Eosinphils 0.2 thou/uL (0.0-0.7); #Monocytes 0.7 thou/uL (0.11-0.59); #Neutrophils 5.6 thou/uL (1.40-6.50); %Eosinophils 2.1 % (0.0-10.0); %Lymphocytes 31.2 % (21.0-51.0); %Monocytes 7.3 % (0.0-10.0); %Neutrophils 58.4 % (42.0-75.0); Hemoglobin 11.7 g/dL (12.0-16.0); Mean Corpuscular HGB CONC 33.7 g/dL (32.0-36.0); Mean Corpuscular Hemoglobin 31.4 pg (27.0-31.0); Mean Corpuscular Volume 93.2 fL (78.0-98.0); Platelet Count 276 thou/uL (130-400); Red Blood Cell (RBC) Count 3.72 mill/uL (4.20-5.40); White Blood Cell (WBC) Count 9.6 thou/uL (4.8-10.8)
--- NOTE | 2019-03-22 20:06 | RAD ---
EXAM: CHEST ONE VIEW HISTORY: Chest pain and shortness of breath. Dyspnea. COMPARISON: 04/18/2014 obtained from [facility]. FINDINGS: The cardiac silhouette and pulmonary vasculature is within normal limits. The lungs are clear. The os seous structures are intact. Chest is stable compared to prior study. IMPRESSION: No acute cardiopulmonary process.
[2019-03-22 20:08] LABS: ALT (SGPT) 30 U/L (8-55); AST (SGOT) 37 U/L (5-34); Albumin 4.2 g/dL (3.5-5.0); Alkaline Phosphatase 94 U/L (40-110); Anion Gap 13 mmol/L (10-20); BUN (Urea Nitrogen) 28 mg/dL (7.0-18.7); Bilirubin, Total 0.2 mg/dL (0.2-1.2); Calc. Creatinine Clearance 0 mL/min (70-130); Calcium 9.4 mg/dL (7.8-10.44); Carbon Dioxide 29 mmol/L (22-29); Chloride 104 mmol/L (98-107); Estimated GFR-MDRD 39; Globulin 3.3 g/dL (2.4-3.5); Glucose 141 mg/dL (70-105); Protein, Total 7.5 g/dL (6.0-8.3); Sodium 142 mmol/L (136-145)
--- NOTE | 2019-03-22 20:35 | ULT ---
EXAM: Left lower extremity venous Doppler HISTORY: Left lower extremity pain. FINDINGS: Grayscale, color-flow, Doppler evaluation, spectral analysis of the left lower extremity venous struc tures is performed with 2-D imaging. The left common femoral, superficial femoral, popliteal, posterior tibial, proximal greater saphenous and profunda femoral veins are imaged. There is normal luminal compressibility, flow, and augmentation in the visualized deep venous structu res of the left lower extremity. IMPRESSION: No evidence of a deep vein thrombosis in the visualized deep venous structures left lower extremity.
--- NOTE | 2019-03-22 20:53 | CT ---
CT ANGIOGRAM THORAX WITH IV CONTRAST AND 3-D RECONSTRUCTIONS CLINICAL INDICATION: Chest pain, shortness of breath, dyspnea. Recent long car trip. COMPARISON: 07/01/2010 FINDINGS: Pulmonary arteries: No filling defects are seen in the pulmonary arteries to suggest a pulmonary embo bjorn. Aorta: The aorta is normal in caliber without evidence of an aortic dissection. Lungs: Minimal dependent atelectasis is seen on the right. The lungs are otherwise clear. There is no consolidation or pleural effusion seen. No pulmonary nodule is identified. Mediastinum: There is no evidence of lymphadenopathy. Thyroid gland: Normal in appearance where visualized. Osseous structures: Mild degenerative changes in the thoracic spine. Chest wall: No abnormality visualized. Upper abdomen: Postcholecystectomy changes are noted. There is diminished attenuation of the liver wh ich may related to mild fatty infiltration. CT a chest is stable compared to prior study in 2010. IMPRESSION: 1. No CT evidence of a pulmonary embolus. 2. Fatty infiltration of the visualized liver.
[2019-03-22 23:06] VITALS: BMI 40.5
[2019-03-22 23:35] LABS: Troponin I Less than 0.010 ng/mL (< 0.028)
--- NOTE | 2019-03-23 00:15 | PDOC.EVN ---
Event Note - Event Note Event Note: [id number] HP
[2019-03-23] MEDS ORDERED: HYDROcodone/Acetaminophen 10/325 mg Tablet PO PRN (00:52)
[2019-03-23] MEDS ORDERED: Nebivolol HCl 5 MG TAB PO SCH ×2 (01:45→21:00)
[2019-03-23] MEDS ORDERED: Simvastatin 20 MG TAB PO SCH ×2 (01:45→21:00)
[2019-03-23] MEDS ORDERED: Zolpidem Tartrate 5 MG TAB PO SCH ×2 (01:45→21:00)
[2019-03-23] MEDS ORDERED: Gabapentin 100 MG CAP PO SCH ×4 (01:45→21:00)
[2019-03-23] MEDS ORDERED: Pramipexole Di-HCl 0.25 MG TAB PO SCH ×2 (01:45→21:00)
[2019-03-23] MEDS ORDERED: Doxepin HCl 25 MG CAP PO SCH ×2 (01:45→21:00)
[2019-03-23 02:13] LABS: Troponin I Less than 0.010 ng/mL (< 0.028)
[2019-03-23] MEDS ORDERED: Gabapentin 400 MG CAP PO SCH ×2 (02:15→21:00)
--- NOTE | 2019-03-23 02:26 | HP ---
CHIEF COMPLAINT: Shortness of breath and chest tightness. HISTORY OF PRESENT ILLNESS: Ms. Urbina is a 48-year-old female with past medical history of hypertension, hyperlipidemia, diabetes mellitus, family history of coronary artery disease, obesity, among others, presents to the emergency room with chest tightness, shortness of breath, and left shoulder pain. The patient had a chest CT due to elevated D-dimer level. Chest CT was negative for PE. Also, she noticed left leg swelling. She had a long drive recently. Initial workup in the emergency room including EKG and troponin was unremarkable. Given the patient's presentation and risk factors, the patient is being admitted to hospital for further management. PAST MEDICAL HISTORY: 1. Hypertension. 2. Hyperlipidemia. 3. Diabetes mellitus. 4. Obesity. 5. Ankylosing spondylitis. 6. Sleep apnea. 7. Chronic kidney disease. 8. Neuropathy. 9. Fibromyalgia. PAST SURGICAL HISTORY: 1. Bladder suspension. 2. Cholecystectomy. 3. . 4. x2. 5. Right rotator cuff. 6. Laminectomy. PAST PSYCHIATRIC HISTORY: Includes depression and ADHD. SOCIAL HISTORY: Denies alcohol use. Denies drug use. No smoking history. FAMILY HISTORY: Remarkable for coronary artery disease and congestive heart failure in her mother in her 50s. HOME MEDICATIONS: Please see home medication reconciliation form for updated medications. REVIEW OF SYSTEMS: Review of 14 systems is negative except what is mentioned in the history of present illness. ALLERGIES: NO KNOWN ALLERGIES. PHYSICAL EXAMINATION: GENERAL: The patient is awake, alert, does not appear to be in acute distress. VITAL SIGNS: Blood pressure 116/61, respiratory rate is 20, temperature 98.4, pulse is 77. HEAD AND NECK: Normocephalic, atraumatic. NECK: Supple. No JVD. CHEST: Fair bilateral air entry. HEART: S1, S2. Regular. ABDOMEN: Obese, soft. Bowel sounds present. NEUROLOGIC: Awake, alert, oriented x3. PSYCH: Normal mood. EXTREMITIES: No clubbing, no cyanosis. LABORATORY DATA: BUN is 28, creatinine 1.4. WBC count is 9.6, hemoglobin 11.7, platelets 276. ASSESSMENT: A 48-year-old female with multiple cardiac risk factors including diabetes mellitus, hypertension, hyperlipidemia, family history, presenting with chest tightness and left shoulder pain associated with shortness of breath. PLAN: 1. Admit. 2. Telemetry monitoring. 3. Aspirin. 4. Serial troponins. 5. Cardiac stress test. 6. Reconcile home medications. 7. DVT prophylaxis, early ambulation. 8. Expected length of stay, at least 1 midnight if the patient is stable and further workup is negative. Job ID: [id number]
[2019-03-23] MEDS: Gabapentin 400 MG CAP PO SCH ×2 (08:44→15:00)
[2019-03-23] MEDS ORDERED: Aspirin 325 mg Enteric Coated Tablet PO SCH (09:00)
[2019-03-23] MEDS ORDERED: Escitalopram Oxalate 20 mg Tablet PO SCH (09:00)
[2019-03-23] MEDS ORDERED: MILNACIPRAN HCL 100 MG PO SCH (09:00)
[2019-03-23] MEDS ORDERED: LISDEXAMFETAMINE DIMESYLATE 70 MG PO SCH (09:00)
[2019-03-23] MEDS ORDERED: Lisinopril/Hydrochlorothiazide 20 mg/12.5 mg Tablet PO SCH (09:00)
[2019-03-23] MEDS ORDERED: ICOSAPENT ETHYL PO SCH (09:00)
[2019-03-23 15:17] VITALS: BP 115/54; TEMP 98.1
--- NOTE | 2019-03-23 16:01 | NM ---
Exam: Nuclear medicine cardiac SPECT stress only with wall motion and ejection fraction HISTORY: Chest pain Exam performed with adenosine protocol Patient was injected with 27.2 mCi technetium 99m sestamibi intravenously for stress only imaging. Short axis, vertical long axis, horizontal long axis imaging demonstrates no evidence for infarct or ischemia. LHR 0.38 EDV 95 mL Ejection fraction 65% Wall motion is normal. IMPRESSION: No scan evidence for infarct or ischemia.
[2019-03-23] MEDS ORDERED: OXYCODONE MYRISTATE 13.5 MG PO SCH (17:00)
[2019-03-23] MEDS ORDERED: (Liraglutide [Victoza 3-Pak] 1.8 MG) SC SCH (21:00)
--- NOTE | 2019-03-23 23:58 | DIS ---
DATE OF ADMISSION: 03/22/2019 DATE OF DISCHARGE: 03/23/2019 DISCHARGE DIAGNOSES: 1. Chest pain, noncardiac likely musculoskeletal. 2. Dyspnea, multifactorial. 3. Hypertension, stable. 4. Hyperlipidemia. 5. Diabetes mellitus type 2, insulin requiring. 6. Morbid obesity. 7. Obstructive sleep apnea. CONSULTATIONS: None. PERTINENT LABORATORY AND X-RAY FINDINGS: Creatinine 1.43, estimated GFR of 39. Troponin I negative x3. BNP 55. CBC showed a hemoglobin of 12, hematocrit 35, platelet count 276. Portable chest x-ray dated 03/22/2019, showed no acute cardiopulmonary process. CT angiogram of the chest dated 03/22/2019, showed no evidence for pulmonary embolus. Fatty infiltration of the liver noted. Left lower extremity venous Doppler study dated 03/22/2019, showed no evidence for DVT. Cardiolite stress test dated 03/23/2019, showed no evidence for reversible or fixed ischemia with calculated ejection fraction of 65%. HOSPITAL COURSE: The patient was initially admitted after presenting with increased shortness of breath and chest tightness. The patient underwent serial cardiac biomarkers, which were negative x3. The patient proceeded to Cardiolite stress testing showing no evidence for reversible or fixed ischemia with calculated ejection fraction of 65%. 2D transthoracic echocardiogram was performed, however, results are pending at the time of this dictation. Telemetry monitoring showed no evidence of acute arrhythmia or dysrhythmia with sinus mechanism throughout the hospital course. Metabolic screening was essentially unremarkable except for mild elevation and creatinine to 1.43. Overall, the patient remained clinically stable with stable vital signs noted. I have examined the patient at the time of discharge and discussed followup instructions. The patient verbalized understanding and agreement ready for discharge on 03/23/2019. DISCHARGE MEDICATIONS: 1. Doxepin 50 mg p.o. at bedtime. 2. Lexapro 40 mg p.o. daily. 3. Estradiol 0.1 mg transdermally daily. 4. Gabapentin 400 mg p.o. b.i.d. and 1000 mg p.o. at bedtime. 5. [place] 10/325 mg one tablet p.o. q.6 hours p.r.n. pain. 6. Vascepa two capsules p.o. b.i.d. 7. Victoza 1.8 mg subcutaneously at bedtime. 8. Lisdexamfetamine 70 mg p.o. daily. 9. Lisinopril/hydrochlorothiazide 20/12.5 mg 2 tablets p.o. daily. 10. Savella 100 mg p.o. b.i.d. 11. Bystolic 10 mg p.o. at bedtime. 12. Xtampza extended release one tablet p.o. at bedtime. 13. Pramipexole 0.5 mg p.o. at bedtime. 14. Zocor 10 mg p.o. at bedtime. FOLLOWUP: The patient may follow up with her primary care provider, Dr. Danisha Lundberg. CONDITION ON DISCHARGE: Stable. ACTIVITY: Ad-allegra. DIET: ADA and heart healthy. CODE STATUS: Full. DISPOSITION: Home, 03/23/2019. Job ID: [id number]
== END 2019-03-23 17:16 | disposition home or self-care (01) ==
LOC: SCSER 19:22 → 2SW 21:31
PROVIDERS: ADMIT Internal Medicine; ATTEND Internal Medicine
DX: R07.89 Other chest pain (principal); R06.02 Shortness of breath; I25.10 Atherosclerotic heart disease of native coronary artery without angina pectoris; I12.9 Hypertensive chronic kidney disease with stage 1 through stage 4 chronic kidney disease, or unspecified chronic kidney disease; E11.22 Type 2 diabetes mellitus with diabetic chronic kidney disease; N18.9 Chronic kidney disease, unspecified; E66.01 Morbid (severe) obesity due to excess calories; E78.5 Hyperlipidemia, unspecified; G47.33 Obstructive sleep apnea (adult) (pediatric); Z68.41 Body mass index [BMI] 40.0-44.9, adult; Z79.84 Long term (current) use of oral hypoglycemic drugs; Z79.899 Other long term (current) drug therapy
CPT/HCPCS: 36415; 36416; 71045; 71275; 78452; 80053; 83880; 84484; 85025; 93005; 93017; 93306; 94760; 96360; A9500; G0378; J0153

== ENCOUNTER 2019-03-26 11:48 | Outpatient (CLI) | payer BC ==
--- NOTE | 2019-03-26 12:25 | RAD ---
EXAM: 3 views of the left shoulder HISTORY: Shoulder pain COMPARISON: None FINDINGS: There is no evidence of acute fracture or dislocation. No degenerative changes are present. No soft tissue swelling is seen. The visualized thorax is unremarkable. IMPRESSION: No evidence of acute osseous abnormality.
--- NOTE | 2019-03-26 12:32 | RAD ---
EXAM: XR Thoracic Spine 3 V STANDARD PROVIDED CLINICAL HISTORY: Acute left-sided thoracic back pain. COMPARISON: None FINDINGS: There are scattered osteophytes seen anteriorly within the thoracic spine. The vertebral body heights and intervertebral disc spaces of the thoracic spine appear to be within normal limits. No fracture or subluxation is seen involving the thoracic spine. IMPRESSION: Mild degenerative changes in thoracic spine, but no acute findings are appreciated on this exam.
== END 2019-03-26 11:49 | disposition home or self-care (01) ==
LOC: RAD 11:48
PROVIDERS: ATTEND Internal Medicine
DX: M25.512 Pain in left shoulder (principal); M54.6 Pain in thoracic spine; M47.814 Spondylosis without myelopathy or radiculopathy, thoracic region
CPT/HCPCS: 72072

== ENCOUNTER 2019-03-26 13:12 | Outpatient (CLI) | payer OTHER ==
--- NOTE | 2019-03-26 14:48 | MRI ---
MRI RIGHT KNEE: Date: 03/26/19 PROVIDED CLINICAL HISTORY: Right knee pain. FINDINGS: The anterior cruciate ligament, posterior cruciate ligament, medial collateral ligament, and lateral collateral ligamentous complex demonstrate an intact MR appearance, as does the extensor mechanism. There is a full thickness radial tear involving the posterior horn of the medial meniscus medial to t he aortic root. The lateral meniscus demonstrates no evidence for tear. Articular cartilage loss involves the median ridge of the patella and lateral aspects of the medial f acet, partially full thickness. There is full thickness articular cartilage loss involving portions o f the central weightbearing medial femorotibial joint. Articular cartilage irregularity is seen invol ving the central and medial aspects of the femoral trochlea. Osteophyte formation is seen about the k nee. There is a mild-moderate knee joint effusion. No focal concerning regional marrow or muscular signal abnormality is evident. IMPRESSION: 1. Full thickness radial tear involving the posterior horn of the medial meniscus. 2. Medial femorotibial and patellofemoral articular chondrosis. 3. Moderate knee joint effusion. POS: OFF
== END 2019-03-26 13:13 | disposition home or self-care (01) ==
LOC: SCSMRI 13:12
PROVIDERS: ATTEND Family Medicine
DX: S89.91XD Unspecified injury of right lower leg, subsequent encounter (principal); S83.241D Other tear of medial meniscus, current injury, right knee, subsequent encounter; M25.461 Effusion, right knee

== ENCOUNTER 2019-04-02 11:52 | Outpatient (CLI) | payer BC ==
--- NOTE | 2019-04-02 16:25 | NM ---
RADIONUCLIDE DIURETIC RENOGRAM: 04/01/19 HISTORY: Unspecified hydronephrosis. RADIOPHARMACEUTICAL: 7.2 millicuries of technetium 99m - MAG3 injected intravenously. DIURETIC: 40 mg IV Lasix administered 15 minutes prior to the administration of the radiopharmaceutical. The patient has a Hall catheter. FINDINGS: There is good flow to both kidneys with normal tracer uptake on either side. The differential functio n measures 43% on the right and 57% on the left. There is normal tracer excretion by the kidneys bila terally with downsloping renogram curves on either side. The excretion halftimes measures 6.7 minute s on the left and 9.9 minutes on the right. IMPRESSION: No evidence of high grade obstruction. POS: OFF
[2019-04-02] MEDS ORDERED: Furosemide 40 MG/4 ML VIAL ONE (16:32)
== END 2019-04-02 11:53 | disposition home or self-care (01) ==
LOC: NM 11:52
PROVIDERS: ATTEND Urology
DX: N13.30 Unspecified hydronephrosis (principal); Q63.8 Other specified congenital malformations of kidney; Q62.8 Other congenital malformations of ureter
CPT/HCPCS: 78708; A4641; A9562; J1940

== ENCOUNTER 2019-06-06 07:11 | Day surgery (SDC) | payer BC ==
[2019-06-05 12:46] VITALS: BMI 33.7
[2019-06-06] MEDS ORDERED: FLU VACC QS2019-20(6MOS UP)/PF 60 MCG/0.5 ML SYRINGE IM ONE (09:00)
--- NOTE | 2019-06-06 10:11 | CT ---
CT lumbar spine postmyelogram: HISTORY: Left-sided back pain with pain extending into left lower extremity. History of prior low back surgery . COMPARISON: CT lumbar spine obtained postmyelogram on 06/02/2014 FINDINGS: Minimal vascular calcifications are identified. The paravertebral soft tissues demonstrate a normal appearance. Psoas muscles are symmetric in appear ance bilaterally. No fracture or subluxation is seen involving the lumbar spine L1-2: No significant central canal or neural foraminal narrowing is seen. L2-3: No significant central canal or neural foraminal narrowing is seen. L3-4: No significant central canal or neural foraminal narrowing is seen. L4-5: As noted on the prior examination, there are postsurgical changes related to posterior fusion w ith unilateral right-sided pedicular screws and posterior rods transfixing this level. Again noted is the lucency surrounding the L5 transpedicular screw. Intradiscal prosthesis is again noted at this level and again similar to prior study. Endplate degenerative changes at this level are again noted. Soft tissue density is seen posterior to the intervertebral disc space again greater along the region of the left lateral recess. The amount of soft tissue density is mildly increased when compared to the prior exam. This soft tissue density does result in narrowing of the subarticular zone on the lef t and does appear to contact the traversing left L5 nerve root and may potentially affect the L5 nerve root. Facet degenerative changes are noted at this level. Mild bilateral neural foraminal narro wing is present. L5-S1: There is a mild broad-based disc osteophyte complex slightly greater on the left. Facet hypert rophic changes are present at this level. Central spinal canal and neural foramina are patent, but there is moderate to severe left-sided neural foraminal narrowing primarily due to greater degree of posterior osteophyte formation as well as disc material in the region of the left neural foramen compared to prior exam. IMPRESSION: 1. Right-sided unilateral transpedicular screws and posterior rods transfix the L4-5 level, and there is evidence of shree hardware lucency involving the right L5 transpedicular screw which may be related to loosening. This is unchanged from prior exam. 2. Soft tissue density seen posterior to the L4-5 intervertebral disc space with associated facet hyp ertrophic changes greater on the left. Findings result in narrowing of the left subarticular zone, and the soft tissue density does appear to contact the traversing left L5 nerve root. This soft tissu e density could potentially affect the traversing left L5 nerve root. 3. Disc osteophyte complex at the L5-S1 level eccentrically greater on the left resulting in moderate to severe left-sided neural foraminal narrowing.
--- NOTE | 2019-06-06 13:20 | RAD ---
EXAM: XR Myelogram Lumbar Spine PROVIDED CLINICAL HISTORY: Lumbar spondylosis. Patient findings of left-sided back pain and left lower extremity pain. History o f prior surgery COMPARISON: None FINDINGS: After informed consent was obtained, the patient was placed on the angiography table in the prone pos ition. Fluoroscopic evaluation of the lumbar spine was performed, and an area was marked overlying the L2-3 interspace. This area was meticulously prepped and draped in usual sterile fashion. A 22-gauge spinal needle was advanced into the thecal sac. The inner stylette was removed with a retu rn of clear cerebral spinal fluid. As a result, approximately 8 mL of Isovue-M 200 contrast was instilled into the thecal sac. The inner stylette was replaced, and the needle was removed. Patient t olerated the procedure well and without immediate complication. Dry sterile dressing was placed at puncture site after hemostasis was achieved. The patient was transported to CT for further imaging. Fluoroscopy: Time 0.7 minutes Dose 147.1 mGY meter squared IMPRESSION: 1. Technically successful lumbar myelogram with puncture at the L2-[address] lumbar spin e exam for further details. 2. Evidence of posterior fusion at the L4-5 level with unilateral right-sided pedicular screws with p osterior dileep and intradiscal prosthesis. There is a lucency surrounding the L5 pedicle screw which is stable compared to study on 06/02/2014 and may represent hardware loosening.
== END 2019-06-06 10:00 | disposition home or self-care (01) ==
LOC: RAD 07:11
PROVIDERS: ATTEND Nurse Practitioner Family
PROC: B02B1ZZ Computerized Tomography (CT Scan) of Spinal Cord using Low Osmolar Contrast (ICD-10-PCS; principal; 2019-06-06)
DX: M47.816 Spondylosis without myelopathy or radiculopathy, lumbar region (principal); M45.6 Ankylosing spondylitis lumbar region; Z79.899 Other long term (current) drug therapy
CPT/HCPCS: 62304; 72132

== ENCOUNTER 2019-11-06 09:50 | Outpatient (CLI) | payer BC ==
--- NOTE | 2019-11-06 10:10 | RAD ---
EXAM: 3 views of the left ankle HISTORY: Ankle pain COMPARISON: None FINDINGS: 3 views of the left ankle shows no evidence of acute fracture or dislocation. Moderate medi al soft tissue swelling is seen. No degenerative changes are present. IMPRESSION: No evidence of acute osseous abnormality.
== END 2019-11-06 09:51 | disposition home or self-care (01) ==
LOC: BICRAD 09:50
PROVIDERS: ATTEND Internal Medicine
DX: M25.572 Pain in left ankle and joints of left foot (principal)

== ENCOUNTER 2019-12-19 07:31 | Outpatient (CLI) | payer BC, OTHER ==
[2019-12-20 14:22] LABS: SARS-CoV-2 MS2 Positive; SARS-CoV-2 N Gene Negative; SARS-CoV-2 S Gene Negative; SARS-CoV-2 by NAA Not Detected (NotDetected); SARS-CoV-2 orf1ab Negative
== END 2019-12-19 07:32 | disposition home or self-care (01) ==
LOC: LABBT 07:31
PROVIDERS: ATTEND Student in an Organized Health Care Education/Training Program
DX: Z01.812 Encounter for preprocedural laboratory examination (principal); Z11.59 Encounter for screening for other viral diseases; G47.33 Obstructive sleep apnea (adult) (pediatric); J34.2 Deviated nasal septum; J34.89 Other specified disorders of nose and nasal sinuses; J34.3 Hypertrophy of nasal turbinates; J30.9 Allergic rhinitis, unspecified; R09.81 Nasal congestion; R53.83 Other fatigue
CPT/HCPCS: 84702; 85014; 87635; U0003

== ENCOUNTER 2020-02-18 15:13 | Observation (INO) | payer BC, OTHER ==
--- NOTE | 2020-02-18 15:44 | RAD ---
XR Chest 1 View Portable HISTORY: Chest pain COMPARISON: 03/22/2019 FINDINGS: The heart size is normal. The lungs are well expanded without focal areas of consolidation, pneumothorax or pleural effusions. IMPRESSION: No radiographic evidence of acute cardiopulmonary process.
[2020-02-18 15:52] LABS: #Basophils 0.1 thou/uL (0.0-0.2); #Eosinphils 0.1 thou/uL (0.0-0.7); #Lymphocytes 4.1 thou/uL (1.20-3.40); #Monocytes 1.3 thou/uL (0.11-0.59); #Neutrophils 7.4 thou/uL (1.40-6.50); %Basophils 0.6 % (0.0-1.0); %Eosinophils 0.6 % (0.0-10.0); %Lymphocytes 31.9 % (21.0-51.0); %Monocytes 10.1 % (0.0-10.0); %Neutrophils 56.9 % (42.0-75.0); Mean Corpuscular HGB CONC 34.1 g/dL (32.0-36.0); Mean Platelet Volume 8.3 fL (7.4-10.4); Platelet Count 335 thou/uL (130-400); RBC Distribution Width 12.2 % (11.5-14.5); Red Blood Cell (RBC) Count 4.38 mill/uL (4.20-5.40); White Blood Cell (WBC) Count 12.9 thou/uL (4.8-10.8)
[2020-02-18 16:23] LABS: ALT (SGPT) 37 U/L (8-55); AST (SGOT) 42 U/L (5-34); Albumin 4.5 g/dL (3.5-5.0); Alkaline Phosphatase 99 U/L (40-110); Anion Gap 15 mmol/L (10-20); BUN (Urea Nitrogen) 20 mg/dL (7.0-18.7); Bilirubin, Total 0.4 mg/dL (0.2-1.2); Calc. Creatinine Clearance 0 mL/min (70-130); Calcium 11.6 mg/dL (7.8-10.44); Carbon Dioxide 25 mmol/L (22-29); Chloride 98 mmol/L (98-107); Estimated GFR-MDRD 56; Globulin 3.8 g/dL (2.4-3.5); Glucose 95 mg/dL (70-105); Potassium 4.1 mmol/L (3.5-5.1); Protein, Total 8.3 g/dL (6.0-8.3); Sodium 134 mmol/L (136-145)
[2020-02-18] MEDS ORDERED: Aspirin Chewable 81 MG TAB ONE (16:35)
[2020-02-18 18:22] VITALS: BMI 39.0
[2020-02-18] MEDS ORDERED: Ondansetron PF 4 MG/2 ML Vial IVP PRN (19:17)
[2020-02-18] MEDS ORDERED: Acetaminophen 325 MG TAB PO PRN (19:17)
[2020-02-18] MEDS ORDERED: HumaLOG 300 UNITS/3 ML VIAL SC PRN (19:28)
[2020-02-18] MEDS ORDERED: Dextrose 50% Abboject 50 ML SYRINGE SLOW IVP PRN (19:28)
[2020-02-18] MEDS ORDERED: Dextrose 5% in Water 1,000 ML IV PRN (19:28)
[2020-02-18 20:00] LABS: Troponin I Less than 0.010 ng/mL (< 0.028)
[2020-02-18] MEDS ORDERED: Atorvastatin Calcium 40 MG TAB PO SCH (21:00)
[2020-02-18] MEDS ORDERED: Nebivolol HCl 5 MG TAB PO SCH (21:00)
[2020-02-18] MEDS ORDERED: Pramipexole Di-HCl 0.25 MG TAB PO SCH (21:00)
[2020-02-18] MEDS: HYDROcodone/Acetaminophen 10/325 mg Tablet PO PRN (21:04)
--- NOTE | 2020-02-19 00:09 | HP ---
CHIEF COMPLAINT: Chest pain. HISTORY OF PRESENT ILLNESS: The patient is a 49-year-old female with past medical history of fibromyalgia, diabetes mellitus type 2, chronic kidney disease stage 3, ankylosing spondylitis, hyperlipidemia and neuropathy, who presented to the hospital with complaints of central chest pain that started about an hour prior to her arrival. The patient stated that the pain was localized to the center of her chest and was radiating to the left side. It got worse with activity and was relieved by the time she arrived to the emergency department. The patient reported similar pain a year ago and at that time, stress test was unremarkable. Denies fever, chills, nausea, vomiting, palpitations, or dizziness. REVIEW OF SYSTEMS: Negative except as noted in HPI. PAST MEDICAL HISTORY: As noted above. PAST SURGICAL HISTORY: Spinal surgery, cholecystectomy, , rotator cuff surgery, laminectomy, sinus surgery. SOCIAL HISTORY: The patient denies alcohol use, smoking, or illicit drug use. ALLERGIES: NO KNOWN DRUG ALLERGIES. PHYSICAL EXAMINATION: GENERAL: The patient is alert and oriented x3. HEENT: Head is normocephalic and atraumatic. Extraocular muscles are intact. NECK: Supple. CHEST: Clear to auscultation bilaterally. CARDIOVASCULAR: Revealed normal S1, S2. No murmurs, rubs, or gallops. Regular rate and rhythm. ABDOMEN: Soft, nontender, and nondistended. EXTREMITIES: Show no edema. NEUROLOGICAL: Nonfocal. PERTINENT DATA: The patient's laboratory studies revealed negative initial troponin and her chest x-ray was unremarkable. ASSESSMENT: 1. Chest pain rule out acute coronary syndrome. 2. Hypertension. 3. Hyperlipidemia. 4. Ankylosing spondylitis. 5. Diabetes mellitus type 2. PLAN: The patient will be placed in telemetry. Start aspirin 81 mg orally daily and atorvastatin 40 mg orally nightly. Continue her beta blockers and antihypertensive medications. We will trend her troponins and if they remain negative, we will consider stress test in the morning. Lovenox for deep venous thrombosis prophylaxis. The patient was encouraged to ambulate. Job ID: [id number]
[2020-02-19 04:56] LABS: #Basophils 0.1 thou/uL (0.0-0.2); #Eosinphils 0.2 thou/uL (0.0-0.7); #Lymphocytes 4.3 thou/uL (1.20-3.40); #Monocytes 1.6 thou/uL (0.11-0.59); #Neutrophils 5.6 thou/uL (1.40-6.50); %Basophils 1.2 % (0.0-1.0); %Eosinophils 1.4 % (0.0-10.0); %Lymphocytes 36.5 % (21.0-51.0); %Monocytes 13.3 % (0.0-10.0); %Neutrophils 47.6 % (42.0-75.0); Hemoglobin 13.2 g/dL (12.0-16.0); Mean Corpuscular HGB CONC 33.7 g/dL (32.0-36.0); Mean Corpuscular Volume 94.8 fL (78.0-98.0); Mean Platelet Volume 8.4 fL (7.4-10.4); Platelet Count 309 thou/uL (130-400); RBC Distribution Width 12.2 % (11.5-14.5); Red Blood Cell (RBC) Count 4.14 mill/uL (4.20-5.40); White Blood Cell (WBC) Count 11.8 thou/uL (4.8-10.8)
[2020-02-19 05:32] LABS: Anion Gap 15 mmol/L (10-20); BUN (Urea Nitrogen) 22 mg/dL (7.0-18.7); Calc. Creatinine Clearance 138 mL/min (70-130); Calcium 9.9 mg/dL (7.8-10.44); Carbon Dioxide 24 mmol/L (22-29); Chloride 100 mmol/L (98-107); Estimated GFR-MDRD 62; Glucose 107 mg/dL (70-105); Potassium 4.2 mmol/L (3.5-5.1); Sodium 135 mmol/L (136-145)
--- NOTE | 2020-02-19 08:11 | PDOC.HOSPP ---
- Subjective Encounter Date: 02/19/20 Encounter Time: 12:30 Subjective: Patient feels fine now. Did have return of symptoms of pounding/funny beating of heart with discomfort and shortness of breath when she had the adenosine injected for the stress test. 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 - Objective Vital Signs & Weight: Vital Signs (12 hours) Temp Pulse Resp BP BP Pulse Ox 02/19/20 07:40 97.7 F 68 16 114/56 L 96 02/19/20 05:15 97.8 F 73 18 106/51 L 93 L 02/18/20 23:15 97.9 F 71 19 128/60 96 Weight Weight 272 lb 6.4 oz Result Diagrams: 02/19/20 04:32 02/19/20 04:32 Additional Labs: Accuchecks 02/18/20 20:26 POC Glucose 157 H Hospitalist ROS - Review of Systems Constitutional: denies: fever, chills Respiratory: denies: cough, shortness of breath Cardiovascular: denies: chest pain, palpitations Gastrointestinal: denies: nausea, vomiting, abdominal pain - Medication Medications: Active Medications Generic Name Dose Route Start Last Admin Trade Name Freq PRN Reason Stop Dose Admin Hydrocodone Bitart/Acetaminophen 1 tab 02/18/20 19:18 02/18/20 21:04 Hydrocodone/Acetaminophen 10/325 Mg Tablet PO 1 tab Q6H PRN Administration Moderate to Severe Pain (6-10) Atorvastatin Calcium 40 mg 02/18/20 21:00 02/18/20 21:03 Atorvastatin Calcium 40 Mg Tab PO 40 mg HS ERIKA Administration Nebivolol 10 mg 02/18/20 21:00 02/18/20 21:03 Nebivolol Hcl 5 Mg Tab PO 10 mg QPM ERIKA Administration Pramipexole Dihydrochloride 0.5 mg 02/18/20 21:00 02/18/20 21:03 Pramipexole Di-Hcl 0.25 Mg Tab PO 0.5 mg HS ERIKA Administration - Exam General Appearance: NAD, awake alert ENT: moist mucosa Heart: RRR, no murmur, no gallops, no rubs Respiratory: CTAB, no wheezes, no rales, no ronchi Gastrointestinal: soft, non-tender, non-distended, normal bowel sounds Psychiatric: normal affect, normal behavior, A&O x 3 Hosp A/P (1) Chest pain, rule out acute myocardial infarction Code(s): R07.9 - CHEST PAIN, UNSPECIFIED Status: Resolved (2) Ankylosing spondylitis Code(s): M45.9 - ANKYLOSING SPONDYLITIS OF UNSPECIFIED SITES IN SPINE Status: Chronic Qualifiers: (3) DM2 (diabetes mellitus, type 2) Status: Chronic Qualifiers: (4) HTN (hypertension) Code(s): I10 - ESSENTIAL (PRIMARY) HYPERTENSION Status: Chronic Qualifiers: (5) HLD (hyperlipidemia) Code(s): E78.5 - HYPERLIPIDEMIA, UNSPECIFIED Status: Chronic (6) Fibromyalgia Status: Chronic - Plan Cardiac markers negative Stress test negative No arrhythmia on telemetry Suspect panic attack at the school yesterday Home and f/u with Deborah Marshall her PCP. Might consider getting a prn anxiety medication.
[2020-02-19] MEDS ORDERED: DULoxetine 30 MG CAP PO SCH (09:00)
[2020-02-19] MEDS ORDERED: Enoxaparin Sodium 40 MG/0.4 ML SYRINGE SC SCH (09:00)
[2020-02-19] MEDS ORDERED: Empagliflozin 10 MG TAB PO SCH (09:00)
[2020-02-19] MEDS: HYDROcodone/Acetaminophen 10/325 mg Tablet PO PRN (09:00)
[2020-02-19] MEDS ORDERED: Lisinopril/Hydrochlorothiazide 20 mg/12.5 mg Tablet PO SCH (09:00)
[2020-02-19] MEDS ORDERED: Gabapentin 300 MG CAP PO SCH (09:00)
[2020-02-19 10:40] VITALS: BP 130/70; TEMP 97.9
--- NOTE | 2020-02-19 11:49 | NM ---
Radionucleotide stress only myocardial perfusion scan with CT attenuation correction and SPECT imagin g Left ventricular wall motion evaluation and ejection fraction HISTORY: Chest pain. FINDINGS: Adenosine protocol. There is homogeneous uptake of radiotracer throughout the left ventricu lar myocardium. No focal perfusion defect or reversibility. QGS analysis of gated SPECT images shows no focal wall motion abnormalities. Ejection fraction calcul ated at 75%. IMPRESSION : No evidence of ischemia. Normal LVEF.
[2020-02-19 11:59] LABS: SARS-CoV-2 MS2 Positive; SARS-CoV-2 N Gene Negative; SARS-CoV-2 S Gene Negative; SARS-CoV-2 by NAA Not Detected (NotDetected); SARS-CoV-2 orf1ab Negative
--- NOTE | 2020-02-19 14:12 | STRESS ---
Acquisition Time: 2020-02-19 09:25:08 Total Exercise Time: 00:04:00 Test Indications: CHEST PAIN Medications: Protocol: ADENOSINE Max HR: 093 BPM 54% of Pred: 171 BPM Max BP: 112/062 mmHG Max Work Load: 1.0 METS RESTING ECG: NORMAL SINUS RHYTHM AT 68 BPM SYMPTOMS: CHEST PAIN AND NAUSEA NORMAL BP RESPONSE ECTOPY: NONE ECG STRESS: NO SIGNIFICANT CHANGES INTERPRETATION: NEGATIVE ECG/AWAIT NUCLEAR IMAGES FOR DEFINITIVE DIAGNOSIS Confirmed by Gregory GALLEGO ([id number]), supervising editor trailer BINA DICKEY ([id number]) on 02/19/2020 2:12:19 PM Referred By: MD Concepcion CHAVEZ Confirmed By:Gregory GALLEGO
--- NOTE | 2020-02-21 09:38 | DIS ---
DATE OF ADMISSION: 02/18/2020 DATE OF DISCHARGE: 02/19/2020 PRIMARY CARE PHYSICIAN: Deborah Marshall MD REASON FOR ADMISSION: Chest pain. DIAGNOSES AT DISCHARGE: 1. Chest pain, resolved, possible panic attack. 2. Ankylosing spondylitis. 3. Diabetes mellitus type 2. 4. Hypertension. 5. Hyperlipidemia. 6. Fibromyalgia. PROCEDURES: Nuclear medicine stress testing showing no evidence of ischemia. Normal left ventricular ejection fraction. CONSULTATIONS: None. SUMMARY OF HOSPITAL COURSE: This is a 49-year-old white female with past medical history of diabetes and fibromyalgia and ankylosing spondylitis on immunosuppressants. 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 The patient was walking through the hallway today when she had sudden onset of central chest pain. She describes it mostly as a pounding and flopping of her heart that had some discomfort radiating to her left back and shoulder. She presented to the emergency room. Her chest pain resolved by that time. She had negative cardiac markers, negative EKG. She had a negative stress test, but it was about a year ago. The patient was observed on telemetry overnight. She had no arrhythmias in the hospital during the hospitalization, and she had a nuclear medicine stress test the day of discharge that was negative for evidence of ischemia or any arrhythmia. The patient does report that she felt similar symptoms after she was given the medication during the stress test of pounding of the heart, some trouble in breathing. It is likely that she has actually experienced a panic attack with a mora of adrenaline causing similar symptoms while she was at the school. At the time of discharge, she was without symptoms, is doing well, and is being discharged home. DISCHARGE MANAGEMENT: Discharged home. FOLLOWUP: Follow with Dr. Deborah Marshall in 7 days. ACTIVITY: As tolerated. DIET: Diabetic diet. DISCHARGE MEDICATIONS: Continue all home medications. 1. Duloxetine 30 mg daily. 2. Jardiance 10 mg daily. 3. Gabapentin 600 mg daily. 4. [place] 10/325 one tablet every 6 hours as needed. 5. Lisinopril/hydrochlorothiazide 20/12.5 mg 2 tablets daily. 6. Bystolic 10 mg daily. 7. Pramipexole dihydrochloride 0.5 mg at night. 8. Estradiol patch 0.1 mg transdermal q.7 days. 9. Simponi Aria IV every 6 weeks. 10. Vascepa 2 g p.o. twice a day. 11. Victoza 1.8 mg subcu at night. 12. Vyvanse 70 mg daily. 13. Oxycodone myristate p.o. twice a day. 14. Zocor 10 mg at night. 15. Sulfasalazine 500 mg twice a day. 16. Ambien 12.5 mg at night. Job ID: [id number]
== END 2020-02-19 14:55 | disposition home or self-care (01) ==
LOC: ERS 15:13 → 2SW 17:07
PROVIDERS: ADMIT Internal Medicine; ATTEND Internal Medicine
DX: R07.9 Chest pain, unspecified (principal); M45.9 Ankylosing spondylitis of unspecified sites in spine; I12.9 Hypertensive chronic kidney disease with stage 1 through stage 4 chronic kidney disease, or unspecified chronic kidney disease; E11.22 Type 2 diabetes mellitus with diabetic chronic kidney disease; N18.30 Chronic kidney disease, stage 3 unspecified; E78.5 Hyperlipidemia, unspecified; M79.7 Fibromyalgia; E11.40 Type 2 diabetes mellitus with diabetic neuropathy, unspecified; G47.30 Sleep apnea, unspecified; E78.00 Pure hypercholesterolemia, unspecified; Z79.84 Long term (current) use of oral hypoglycemic drugs; Z79.899 Other long term (current) drug therapy; Z88.8 Allergy status to other drugs, medicaments and biological substances; Z20.828 Contact with and (suspected) exposure to other viral communicable diseases
CPT/HCPCS: 36415; 36416; 71045; 78452; 80048; 80053; 84484; 85025; 87635; 93005; 93017; 96372; A9500; G0378; J0153; J1650; U0003

== ENCOUNTER 2020-03-27 11:56 | Outpatient (CLI) | payer BC ==
--- NOTE | 2020-03-27 14:17 | MMO ---
Bilateral MAMMO Bilat Screen [facility]. CLINICAL HISTORY: Patient is 49 years old and is seen for screening. The patient has the following family history of breast cancer: maternal aunt, inflammatory carcinoma and maternal grandmother. The patient has no personal history of cancer. VIEWS: The views performed were: bilateral mediolateral oblique with tomosynthesis; bilateral craniocaudal with tomosynthesis; left exaggerated craniocaudal; right mediolateral oblique; and right craniocaudal. FILMS COMPARED: The present examination has been compared to prior imaging studies performed at [facility] on 02/01/2008, 03/06/2015 and 09/14/2018. This study has been interpreted with the assistance of computer-aided detection. MAMMOGRAM FINDINGS: The breasts are heterogeneously dense, which could obscure a lesion on mammography. Finding 1: There are stable benign appearing densities seen in both breasts. Finding 2: There are stable benign appearing calcifications seen in both breasts. There are no suspicious masses, suspicious calcifications, or new areas of architectural distortion. IMPRESSION: THERE IS NO MAMMOGRAPHIC EVIDENCE OF MALIGNANCY. A ROUTINE FOLLOW-UP MAMMOGRAM IN 1 YEAR IS RECOMMENDED. THE RESULTS OF THIS EXAM WERE SENT TO THE PATIENT. ACR BI-RADS Category 2 - Benign finding MAMMOGRAPHY NOTE: 1. A negative mammogram report should not delay a biopsy if a dominant of clinically suspicious mass is present. 2. Approximately 10% to 15% of breast cancers are not detected by mammography. 3. Adenosis and dense breasts may obscure an underlying neoplasm. Reported by: ANJEL WHARTON MD Electonically Signed: [id number]
== END 2020-03-27 11:57 | disposition home or self-care (01) ==
LOC: BICMAMMO 11:56
PROVIDERS: ATTEND Internal Medicine
DX: Z12.31 Encounter for screening mammogram for malignant neoplasm of breast (principal); Z80.3 Family history of malignant neoplasm of breast
CPT/HCPCS: 77063; 77067

== ENCOUNTER 2020-04-07 09:55 | Day surgery (SDC) | payer BC ==
[2020-04-06 12:21] VITALS: BMI 40.1
[~2020-04-07 09:55] MED LIST: Iopamidol 370 76% 100 ML VIAL ONE
[2020-04-07] MEDS ORDERED: Diazepam 5 MG TAB ONE (10:45)
[2020-04-07 11:22] LABS: #Basophils 0.1 thou/uL (0.0-0.2); #Eosinphils 0.1 thou/uL (0.0-0.7); #Lymphocytes 2.8 thou/uL (1.20-3.40); #Neutrophils 4.1 thou/uL (1.40-6.50); %Basophils 0.7 % (0.0-1.0); %Eosinophils 1.6 % (0.0-10.0); %Lymphocytes 34.9 % (21.0-51.0); %Monocytes 12.2 % (0.0-10.0); %Neutrophils 50.7 % (42.0-75.0); Hemoglobin 13.3 g/dL (12.0-16.0); Mean Corpuscular HGB CONC 32.6 g/dL (32.0-36.0); Mean Corpuscular Hemoglobin 30.3 pg (27.0-31.0); Mean Corpuscular Volume 92.8 fL (78.0-98.0); Platelet Count 309 thou/uL (130-400); Red Blood Cell (RBC) Count 4.39 mill/uL (4.20-5.40)
[2020-04-07 11:39] LABS: Anion Gap 12 mmol/L (10-20); BUN (Urea Nitrogen) 15 mg/dL (7.0-18.7); Calc. Creatinine Clearance 148 mL/min (70-130); Calcium 9.8 mg/dL (7.8-10.44); Carbon Dioxide 28 mmol/L (22-29); Chloride 103 mmol/L (98-107); Estimated GFR-MDRD 65; Glucose 126 mg/dL (70-105); Potassium 4.6 mmol/L (3.5-5.1); Sodium 138 mmol/L (136-145)
[2020-04-07] MEDS ORDERED: Verapamil 5 MG/2 ML VIAL ONE (12:10)
[2020-04-07] MEDS ORDERED: Nitroglycerin 100MG/250ML BOT 250 ML ONE (12:10)
[2020-04-07] MEDS ORDERED: Heparin 10,000 UNITS/ 10 ML VIAL ONE (12:10)
[2020-04-07] MEDS ORDERED: Adenosine 6 MG/2 ML VIAL ONE (12:10)
[2020-04-07] MEDS ORDERED: Fentanyl 100 MCG/2 ML VIAL ONE (12:45)
[2020-04-07] MEDS ORDERED: Midazolam HCl 2 mg/2 ml Vial ONE (12:45)
[2020-04-07] MEDS ORDERED: Acetaminophen 500 MG TAB ONE (13:16)
== END 2020-04-07 16:10 | disposition home or self-care (01) ==
LOC: CCL 09:55
PROVIDERS: ATTEND Internal Medicine Cardiovascular Disease
PROC: 4A023N7 Measurement of Cardiac Sampling and Pressure, Left Heart, Percutaneous Approach (ICD-10-PCS; principal; 2020-04-07)
PROC: B2111ZZ Fluoroscopy of Multiple Coronary Arteries using Low Osmolar Contrast (ICD-10-PCS; principal; 2020-04-07)
DX: R07.1 Chest pain on breathing (principal); I25.10 Atherosclerotic heart disease of native coronary artery without angina pectoris; I12.9 Hypertensive chronic kidney disease with stage 1 through stage 4 chronic kidney disease, or unspecified chronic kidney disease; E11.22 Type 2 diabetes mellitus with diabetic chronic kidney disease; N18.30 Chronic kidney disease, stage 3 unspecified; F90.9 Attention-deficit hyperactivity disorder, unspecified type; G47.00 Insomnia, unspecified; G47.33 Obstructive sleep apnea (adult) (pediatric); F32.9 Major depressive disorder, single episode, unspecified; E66.01 Morbid (severe) obesity due to excess calories; Z68.41 Body mass index [BMI] 40.0-44.9, adult; Z79.899 Other long term (current) drug therapy
CPT/HCPCS: 36415; 80048; 85025; 93458; 99152; J0153; J1644; J2250; J3010; Q9967

== ENCOUNTER 2020-06-15 07:25 | Outpatient (CLI) | payer BC ==
--- NOTE | 2020-06-15 13:13 | NM ---
EXAM: Nuclear medicine gastric emptying COMPARISON: None HISTORY: Nausea and vomiting with 15 pound weight loss TECHNIQUE: A nuclear medicine gastric emptying exam was administered after administration of 2.07 mCi of technetium 99m sulfur colloid mixed with eggs. FINDINGS: No gastroesophageal reflux was seen during the examination. 30 minute emptying is 37%. 60 minutes emptying is 69%. 120 minute emptying is 81 %. 180 minute emptying is 93 % T1/2 of gastric emptying is 41 minutes. IMPRESSION: Normal gastric emptying exam
== END 2020-06-15 07:26 | disposition home or self-care (01) ==
LOC: NM 07:25
PROVIDERS: ATTEND Internal Medicine
DX: R11.2 Nausea with vomiting, unspecified (principal)
CPT/HCPCS: 78264; A9541

== ENCOUNTER 2020-09-15 12:25 | Outpatient (CLI) | payer BC | END 2020-09-15 12:26 | disposition home or self-care (01) | LOC: BICRAD 12:25 | PROVIDERS: ATTEND Internal Medicine | DX: E11.621 Type 2 diabetes mellitus with foot ulcer (principal); L97.529 Non-pressure chronic ulcer of other part of left foot with unspecified severity ==

== ENCOUNTER 2021-02-12 07:30 | Outpatient (CLI) | payer BC | END 2021-02-12 07:31 | disposition home or self-care (01) | LOC: BICULT 07:30 | PROVIDERS: ATTEND Internal Medicine | DX: R74.01 Elevation of levels of liver transaminase levels (principal); K76.0 Fatty (change of) liver, not elsewhere classified; Z90.49 Acquired absence of other specified parts of digestive tract | CPT/HCPCS: 76705 ==

== ENCOUNTER 2021-03-18 10:34 | Day surgery (SDC) | payer BC ==
[2021-03-17 11:17] VITALS: BMI 37.3
[2021-03-18] MEDS ORDERED: methylPREDNISolone Acetate 40 mg/ml Vial ONE (12:04)
[2021-03-18] MEDS ORDERED: Lidocaine 2% PF 5 ML VIAL ONE (12:04)
[2021-03-18] MEDS ORDERED: Bupivacaine 0.25% HCL 30 ML VIAL ONE (12:04)
[2021-03-18] MEDS ORDERED: Fentanyl 100 MCG/2 ML VIAL ONE (12:10)
[2021-03-18] MEDS ORDERED: PROPOFOL 200 MG/20 ML VIAL ONE (12:29)
[2021-03-18] MEDS ORDERED: Lidocaine 1% PF 5 ML VIAL ONE (12:29)
[2021-03-18] MEDS ORDERED: Rocuronium Bromide 10 MG/ML (10ML VIAL) ONE (12:29)
[2021-03-18] MEDS ORDERED: Ondansetron PF 4 MG/2 ML Vial ONE (12:29)
[2021-03-18] MEDS ORDERED: Succinylcholine 200 MG/10 ml SYRINGE FS ONE (12:29)
== END 2021-03-18 14:45 | disposition home or self-care (01) ==
LOC: SDC 10:34
PROVIDERS: ATTEND Specialist
PROC: 3E0T3TZ Introduction of Destructive Agent into Peripheral Nerves and Plexi, Percutaneous Approach (ICD-10-PCS; principal; 2021-03-18)
DX: M47.816 Spondylosis without myelopathy or radiculopathy, lumbar region (principal); M47.817 Spondylosis without myelopathy or radiculopathy, lumbosacral region; E78.5 Hyperlipidemia, unspecified; I10 Essential (primary) hypertension; M79.7 Fibromyalgia; Z79.84 Long term (current) use of oral hypoglycemic drugs; Z79.899 Other long term (current) drug therapy; Z98.1 Arthrodesis status
CPT/HCPCS: 76000; J2001; J2405; J2704; J2920; J3010; S0020

== ENCOUNTER 2021-05-27 15:05 | Outpatient (CLI) | payer BC | END 2021-05-27 15:06 | disposition home or self-care (01) | LOC: BICMAMMO 15:05 | PROVIDERS: ATTEND Internal Medicine | DX: Z12.31 Encounter for screening mammogram for malignant neoplasm of breast (principal); Z80.3 Family history of malignant neoplasm of breast | CPT/HCPCS: 77063; 77067 ==

== ENCOUNTER 2021-06-16 12:37 | Emergency (ER) | payer BC ==
[2021-06-16 13:54] LABS: #Basophils 0.1 thou/uL (0.0-0.2); #Eosinphils 0.1 thou/uL (0.0-0.7); #Lymphocytes 4.2 thou/uL (1.20-3.40); #Monocytes 1.3 thou/uL (0.11-0.59); #Neutrophils 7.2 thou/uL (1.40-6.50); %Basophils 0.6 % (0.0-1.0); %Eosinophils 0.7 % (0.0-10.0); %Lymphocytes 32.6 % (21.0-51.0); %Monocytes 10.1 % (0.0-10.0); Hemoglobin 13.2 g/dL (12.0-16.0); Mean Corpuscular HGB CONC 33.2 g/dL (32.0-36.0); Mean Corpuscular Hemoglobin 31.1 pg (27.0-31.0); Mean Corpuscular Volume 93.6 fL (78.0-98.0); Mean Platelet Volume 8.2 fL (7.4-10.4); Platelet Count 298 thou/uL (130-400); RBC Distribution Width 11.6 % (11.5-14.5); Red Blood Cell (RBC) Count 4.25 mill/uL (4.20-5.40); White Blood Cell (WBC) Count 12.9 thou/uL (4.8-10.8)
[2021-06-16 14:16] LABS: ALT (SGPT) 67 U/L (8-55); AST (SGOT) 41 U/L (5-34); Albumin 4.3 g/dL (3.5-5.0); Alkaline Phosphatase 117 U/L (40-110); Anion Gap 18 mmol/L (10-20); BUN (Urea Nitrogen) 24 mg/dL (7.0-18.7); Bilirubin, Total 0.5 mg/dL (0.2-1.2); Calc. Creatinine Clearance 0 mL/min (70-130); Calcium 10.2 mg/dL (7.8-10.44); Carbon Dioxide 24 mmol/L (22-29); Chloride 99 mmol/L (98-107); Globulin 3.6 g/dL (2.4-3.5); Glucose 178 mg/dL (70-105); Potassium 4.2 mmol/L (3.5-5.1); Protein, Total 7.9 g/dL (6.0-8.3); Sodium 137 mmol/L (136-145)
== END 2021-06-16 14:45 | disposition home or self-care (01) ==
LOC: ERS 12:37
DX: R07.9 Chest pain, unspecified (principal); U07.1 COVID-19; E78.00 Pure hypercholesterolemia, unspecified; G47.33 Obstructive sleep apnea (adult) (pediatric); I12.9 Hypertensive chronic kidney disease with stage 1 through stage 4 chronic kidney disease, or unspecified chronic kidney disease; N18.30 Chronic kidney disease, stage 3 unspecified; E11.22 Type 2 diabetes mellitus with diabetic chronic kidney disease; R06.00 Dyspnea, unspecified
CPT/HCPCS: 36415; 71045; 71275; 80053; 83880; 84484; 85025; 85379; 93005

== ENCOUNTER 2021-12-06 08:25 | Outpatient (CLI) | payer BC ==
[2021-12-06 10:14] LABS: Anion Gap 15 mmol/L (10-20); BUN (Urea Nitrogen) 16 mg/dL (9.8-20.1); Calc. Creatinine Clearance 0 mL/min (70-130); Carbon Dioxide 25 mmol/L (22-29); Chloride 103 mmol/L (98-107); Estimated GFR 87; Glucose 197 mg/dL (70-105); Potassium 4.4 mmol/L (3.5-5.1); Sodium 139 mmol/L (136-145)
== END 2021-12-06 08:26 | disposition home or self-care (01) ==
LOC: LABBT 08:25
PROVIDERS: ATTEND Specialist
DX: Z01.818 Encounter for other preprocedural examination (principal); Z20.822 Contact with and (suspected) exposure to COVID-19
CPT/HCPCS: 80048; 87811; 93005; 93010

== ENCOUNTER 2021-12-09 11:08 | Day surgery (SDC) | payer BC ==
[2021-12-07 12:19] VITALS: BMI 38.6
[2021-12-09] MEDS ORDERED: Famotidine/PF 20 mg/2ml Vial ONE (13:26)
[2021-12-09] MEDS ORDERED: Ondansetron ODT 4 MG TAB ONE (13:27)
[2021-12-09] MEDS ORDERED: Ondansetron PF 4 MG/2 ML Vial ONE ×2 (13:29→15:15)
[2021-12-09] MEDS ORDERED: SUGAMMADEX SODIUM 200 MG/2 ML VIAL ONE (14:52)
[2021-12-09] MEDS ORDERED: Midazolam HCl 2 mg/2 ml Vial ONE (14:52)
[2021-12-09] MEDS ORDERED: fentaNYL Citrate/PF 100 MCG/2 ML SYRINGE ONE (14:52)
[2021-12-09] MEDS ORDERED: Lidocaine 2% PF 5 ML VIAL ONE ×3 (14:58→16:27)
[2021-12-09] MEDS ORDERED: methylPREDNISolone Acetate 40 mg/ml Vial ONE ×2 (14:58→15:39)
[2021-12-09] MEDS ORDERED: Bupivacaine PF 0.5% 30 ML VIAL ONE (14:58)
[2021-12-09] MEDS ORDERED: Triamcinolone 40 MG/ML VIAL ONE (14:58)
[2021-12-09] MEDS ORDERED: Lidocaine 1% PF 5 ML VIAL ONE (15:15)
[2021-12-09] MEDS ORDERED: Glycopyrrolate 0.2 MG/ML 5 ML SYRINGE ONE (15:15)
[2021-12-09] MEDS ORDERED: Succinylcholine 200 MG/10 ml SYRINGE FS ONE (15:15)
[2021-12-09] MEDS ORDERED: Rocuronium Bromide 10 MG/ML (10ML VIAL) ONE (15:15)
[2021-12-09] MEDS ORDERED: PROPOFOL 200 MG/20 ML VIAL ONE (15:15)
[2021-12-09] MEDS ORDERED: Bupivacaine 0.25% 10 ML VIAL ONE (15:39)
== END 2021-12-09 17:42 | disposition home or self-care (01) ==
LOC: SDC 11:08
PROVIDERS: ATTEND Specialist
PROC: 3E0T3TZ Introduction of Destructive Agent into Peripheral Nerves and Plexi, Percutaneous Approach (ICD-10-PCS; principal; 2021-12-09)
DX: M47.816 Spondylosis without myelopathy or radiculopathy, lumbar region (principal); M46.1 Sacroiliitis, not elsewhere classified; E78.5 Hyperlipidemia, unspecified; I10 Essential (primary) hypertension; M79.7 Fibromyalgia; E11.9 Type 2 diabetes mellitus without complications; Z86.16 Personal history of COVID-19; Z79.84 Long term (current) use of oral hypoglycemic drugs; Z79.899 Other long term (current) drug therapy; Z88.8 Allergy status to other drugs, medicaments and biological substances; Z98.1 Arthrodesis status
CPT/HCPCS: 76000; J2001; J2250; J2405; J2704; J2710; J2920; J3301; Q0162; S0020; S0028

== ENCOUNTER 2022-02-26 20:04 | Inpatient (IN) | payer BC ==
[2022-02-26 22:45] VITALS: BMI 38.1
[2022-02-27] MEDS ORDERED: Acetaminophen 650 MG Suppository PR PRN (01:20)
[2022-02-27] MEDS ORDERED: Ondansetron PF 4 MG/2 ML Vial IVP PRN (01:20)
[2022-02-27] MEDS ORDERED: Acetaminophen 325 MG TAB PO PRN (01:20)
[2022-02-27] MEDS ORDERED: Ondansetron ODT 4 MG TAB PO PRN (01:20)
[2022-02-27] MEDS ORDERED: Guaifenesin DM 100-10/5 ML UDCUP PO PRN (01:20)
[2022-02-27] MEDS: HYDROmorphone 0.5 MG/0.5 ML SYRINGE SLOW IVP SCH ×2 (01:48→05:59)
[2022-02-27] MEDS: Zolpidem Tartrate 5 MG TAB PO PRN ×2 (01:55→22:04)
[2022-02-27] MEDS: Cyclobenzaprine 10 MG TAB PO PRN (01:57)
[2022-02-27] MEDS: Leflunomide 10 mg Tablet PO SCH ×2 (02:11→20:47)
[2022-02-27] MEDS: Nebivolol HCl 5 MG TAB PO SCH ×2 (02:12→20:48)
[2022-02-27] MEDS ORDERED: hydrALAZINE 20 MG/ML VIAL SLOW IVP PRN (04:36)
[2022-02-27 05:45] LABS: #Lymphocytes 1.3 thou/uL (1.20-3.40); #Monocytes 0.2 thou/uL (0.11-0.59); #Neutrophils 8.5 thou/uL (1.40-6.50); %Basophils 0.2 % (0.0-1.0); %Eosinophils 0.3 % (0.0-10.0); %Lymphocytes 13.2 % (21.0-51.0); %Monocytes 2.4 % (0.0-10.0); Hemoglobin 12.1 g/dL (12.0-16.0); Mean Corpuscular HGB CONC 32.2 g/dL (32.0-36.0); Mean Corpuscular Hemoglobin 29.4 pg (27.0-31.0); Mean Corpuscular Volume 91.3 fL (78.0-98.0); Mean Platelet Volume 8.5 fL (7.4-10.4); Platelet Count 277 thou/uL (130-400); RBC Distribution Width 12.4 % (11.5-14.5); Red Blood Cell (RBC) Count 4.13 mill/uL (4.20-5.40); White Blood Cell (WBC) Count 10.1 thou/uL (4.8-10.8)
[2022-02-27 05:57] LABS: PTT 28.7 sec (22.9-36.1); Prothrombin Time 13.5 sec (12.0-14.7)
[2022-02-27 06:15] LABS: Hemoglobin A1c 8.2 % (4.0-6.0)
[2022-02-27 06:17] LABS: ALT (SGPT) 49 U/L (8-55); AST (SGOT) 39 U/L (5-34); Alkaline Phosphatase 112 U/L (40-110); Anion Gap 17 mmol/L (10-20); BUN (Urea Nitrogen) 21 mg/dL (9.8-20.1); Bilirubin, Total 0.6 mg/dL (0.2-1.2); Calc. Creatinine Clearance 118 mL/min (70-130); Calcium 9.2 mg/dL (7.8-10.44); Carbon Dioxide 22 mmol/L (22-29); Chloride 100 mmol/L (98-107); Estimated GFR 63; Globulin 3.3 g/dL (2.4-3.5); Glucose 241 mg/dL (70-105); Potassium 4.3 mmol/L (3.5-5.1); Protein, Total 7.3 g/dL (6.0-8.3); Sodium 135 mmol/L (136-145)
[2022-02-27] MEDS ORDERED: Magnevist 469MG/ML 20 ML VIAL ONE (08:46)
[2022-02-27] MEDS ORDERED: oxyCODONE ER 10 MG TAB PO SCH (09:00)
[2022-02-27] MEDS: HYDROcodone/Acetaminophen 10/325 mg Tablet PO PRN ×3 (09:29→22:04)
[2022-02-27] MEDS ORDERED: Senokot S 8.6-50 MG TAB PO PRN (11:11)
[2022-02-27] MEDS: Morphine 4 MG/ML VIAL SLOW IVP PRN ×3 (11:41→20:56)
[2022-02-27] MEDS: Lidocaine 5% Patch TD SCH (11:41)
[2022-02-27] MEDS: Empagliflozin 25 MG TAB PO SCH (11:42)
[2022-02-27] MEDS: DULoxetine 30 MG CAP PO SCH (11:42)
[2022-02-27] MEDS: sulfaSALAzine 500 MG TAB PO SCH ×2 (11:42→20:49)
[2022-02-27] MEDS: Enoxaparin Sodium 40 MG/0.4 ML SYRINGE SC SCH (11:42)
[2022-02-27] MEDS: Lisinopril/Hydrochlorothiazide 20 mg/12.5 mg Tablet PO SCH (11:44)
[2022-02-27] MEDS ORDERED: Dextrose 5% in Water 1,000 ML IV PRN (16:32)
[2022-02-27] MEDS ORDERED: Dextrose 50% Abboject 50 ML SYRINGE SLOW IVP PRN (16:32)
[2022-02-27] MEDS ORDERED: Insulin Regular 300 UNITS/3 ML VIAL SC SCH (16:45)
[2022-02-27] MEDS: Atorvastatin Calcium 10 MG TAB PO SCH (20:45)
[2022-02-27] MEDS: Gabapentin 300 MG CAP PO SCH (20:46)
[2022-02-27] MEDS: Pramipexole Di-HCl 0.25 MG TAB PO SCH (20:49)
[2022-02-27] MEDS: Transdermal Patch Removal TOP SCH (20:51)
[2022-02-27] MEDS ORDERED: Oxycodone Myristate [Xtampza Er] 13.5 MG Cap.Spr.12 PO SCH (21:00)
[2022-02-27] MEDS: HumaLOG 300 UNITS/3 ML VIAL SC PRN (21:27)
[2022-02-28] MEDS: Morphine 4 MG/ML VIAL SLOW IVP PRN ×4 (04:37→20:22)
[2022-02-28] MEDS: HYDROcodone/Acetaminophen 10/325 mg Tablet PO PRN ×3 (06:09→19:31)
[2022-02-28] MEDS: HumaLOG 300 UNITS/3 ML VIAL SC PRN ×3 (06:10→21:06)
[2022-02-28] MEDS: Lisinopril/Hydrochlorothiazide 20 mg/12.5 mg Tablet PO SCH (10:32)
[2022-02-28] MEDS: DULoxetine 30 MG CAP PO SCH (10:32)
[2022-02-28] MEDS: Empagliflozin 25 MG TAB PO SCH (10:33)
[2022-02-28] MEDS: Enoxaparin Sodium 40 MG/0.4 ML SYRINGE SC SCH (10:33)
[2022-02-28] MEDS: Lidocaine 5% Patch TD SCH (10:33)
[2022-02-28] MEDS: sulfaSALAzine 500 MG TAB PO SCH ×2 (12:19→21:06)
[2022-02-28] MEDS: Cyclobenzaprine 10 MG TAB PO PRN (15:00)
[2022-02-28] MEDS: Nebivolol HCl 5 MG TAB PO SCH (20:23)
[2022-02-28] MEDS: Atorvastatin Calcium 10 MG TAB PO SCH (20:23)
[2022-02-28] MEDS: Pramipexole Di-HCl 0.25 MG TAB PO SCH (20:23)
[2022-02-28] MEDS: Gabapentin 300 MG CAP PO SCH (20:23)
[2022-02-28] MEDS: Leflunomide 10 mg Tablet PO SCH (20:23)
[2022-02-28] MEDS: Transdermal Patch Removal TOP SCH (20:24)
[2022-02-28] MEDS: Zolpidem Tartrate 5 MG TAB PO PRN (22:26)
[2022-03-01] MEDS: Morphine 4 MG/ML VIAL SLOW IVP PRN ×5 (02:39→23:14)
[2022-03-01] MEDS: HYDROcodone/Acetaminophen 10/325 mg Tablet PO PRN ×2 (10:09→16:33)
[2022-03-01] MEDS: Enoxaparin Sodium 40 MG/0.4 ML SYRINGE SC SCH (10:10)
[2022-03-01] MEDS: Lisinopril/Hydrochlorothiazide 20 mg/12.5 mg Tablet PO SCH (10:10)
[2022-03-01] MEDS: Lidocaine 5% Patch TD SCH (10:11)
[2022-03-01] MEDS: DULoxetine 30 MG CAP PO SCH (10:11)
[2022-03-01] MEDS: Empagliflozin 25 MG TAB PO SCH (10:11)
[2022-03-01] MEDS: HumaLOG 300 UNITS/3 ML VIAL SC PRN ×3 (12:55→20:35)
[2022-03-01] MEDS: sulfaSALAzine 500 MG TAB PO SCH ×2 (13:01→23:09)
[2022-03-01] MEDS: Cyclobenzaprine 10 MG TAB PO PRN (20:33)
[2022-03-01] MEDS: Gabapentin 300 MG CAP PO SCH (20:33)
[2022-03-01] MEDS: Atorvastatin Calcium 10 MG TAB PO SCH (20:34)
[2022-03-01] MEDS: Leflunomide 10 mg Tablet PO SCH (20:34)
[2022-03-01] MEDS: Pramipexole Di-HCl 0.25 MG TAB PO SCH (20:34)
[2022-03-01] MEDS: Nebivolol HCl 5 MG TAB PO SCH (20:35)
[2022-03-01] MEDS: Transdermal Patch Removal TOP SCH (20:35)
[2022-03-01] MEDS: Zolpidem Tartrate 5 MG TAB PO PRN (23:19)
[2022-03-02] MEDS: HYDROcodone/Acetaminophen 10/325 mg Tablet PO PRN (02:51)
[2022-03-02] MEDS: Morphine 4 MG/ML VIAL SLOW IVP PRN ×5 (05:00→21:38)
[2022-03-02] MEDS: HumaLOG 300 UNITS/3 ML VIAL SC PRN ×4 (05:13→21:39)
[2022-03-02] MEDS: DULoxetine 30 MG CAP PO SCH (09:01)
[2022-03-02] MEDS: Enoxaparin Sodium 40 MG/0.4 ML SYRINGE SC SCH (09:02)
[2022-03-02] MEDS: Gabapentin 300 MG CAP PO SCH ×3 (09:03→20:37)
[2022-03-02] MEDS: Lisinopril/Hydrochlorothiazide 20 mg/12.5 mg Tablet PO SCH (09:04)
[2022-03-02] MEDS: Empagliflozin 25 MG TAB PO SCH (09:05)
[2022-03-02] MEDS: Lidocaine 5% Patch TD SCH (09:06)
[2022-03-02] MEDS: sulfaSALAzine 500 MG TAB PO SCH ×2 (09:17→20:32)
[2022-03-02] MEDS: Cyclobenzaprine 10 MG TAB PO PRN (11:51)
[2022-03-02] MEDS: Atorvastatin Calcium 10 MG TAB PO SCH (20:32)
[2022-03-02] MEDS: Pramipexole Di-HCl 0.25 MG TAB PO SCH (20:32)
[2022-03-02] MEDS: Leflunomide 10 mg Tablet PO SCH (20:33)
[2022-03-02] MEDS: Nebivolol HCl 5 MG TAB PO SCH (20:34)
[2022-03-02] MEDS: Transdermal Patch Removal TOP SCH (21:00)
[2022-03-02] MEDS: Zolpidem Tartrate 5 MG TAB PO PRN (21:38)
[2022-03-03] MEDS: Morphine 4 MG/ML VIAL SLOW IVP PRN ×6 (01:10→23:43)
[2022-03-03] MEDS: HumaLOG 300 UNITS/3 ML VIAL SC PRN ×3 (05:35→22:15)
[2022-03-03] MEDS: Gabapentin 300 MG CAP PO SCH ×3 (08:20→20:32)
[2022-03-03] MEDS: Lisinopril/Hydrochlorothiazide 20 mg/12.5 mg Tablet PO SCH (08:20)
[2022-03-03] MEDS: HYDROcodone/Acetaminophen 10/325 mg Tablet PO PRN ×2 (08:21→18:20)
[2022-03-03] MEDS: DULoxetine 30 MG CAP PO SCH (08:21)
[2022-03-03] MEDS: Lidocaine 5% Patch TD SCH (08:22)
[2022-03-03] MEDS: sulfaSALAzine 500 MG TAB PO SCH ×2 (08:22→20:30)
[2022-03-03] MEDS: Empagliflozin 25 MG TAB PO SCH (08:22)
[2022-03-03] MEDS: Enoxaparin Sodium 40 MG/0.4 ML SYRINGE SC SCH (08:22)
[2022-03-03] MEDS: Cyclobenzaprine 10 MG TAB PO PRN (11:49)
[2022-03-03] MEDS: Pramipexole Di-HCl 0.25 MG TAB PO SCH (20:30)
[2022-03-03] MEDS: Leflunomide 10 mg Tablet PO SCH (20:31)
[2022-03-03] MEDS: Nebivolol HCl 5 MG TAB PO SCH (20:32)
[2022-03-03] MEDS: Atorvastatin Calcium 10 MG TAB PO SCH (20:32)
[2022-03-03] MEDS: Transdermal Patch Removal TOP SCH (22:00)
[2022-03-03] MEDS: Diclofenac 1% 100 GM GEL TP SCH (23:43)
[2022-03-03] MEDS: Zolpidem Tartrate 5 MG TAB PO PRN (23:47)
[2022-03-04] MEDS: Cyclobenzaprine 10 MG TAB PO PRN ×2 (03:15→14:16)
[2022-03-04] MEDS: Morphine 4 MG/ML VIAL SLOW IVP PRN ×4 (04:54→20:10)
[2022-03-04] MEDS: Diclofenac 1% 100 GM GEL TP SCH ×4 (11:38→22:28)
[2022-03-04] MEDS: DULoxetine 30 MG CAP PO SCH (11:39)
[2022-03-04] MEDS: Gabapentin 300 MG CAP PO SCH ×2 (11:40→22:30)
[2022-03-04] MEDS: Lidocaine 5% Patch TD SCH (11:41)
[2022-03-04] MEDS: Enoxaparin Sodium 40 MG/0.4 ML SYRINGE SC SCH (11:41)
[2022-03-04] MEDS: Lisinopril/Hydrochlorothiazide 20 mg/12.5 mg Tablet PO SCH (11:42)
[2022-03-04] MEDS: sulfaSALAzine 500 MG TAB PO SCH ×2 (11:42→22:29)
[2022-03-04] MEDS: Empagliflozin 25 MG TAB PO SCH (11:48)
[2022-03-04] MEDS ORDERED: Dexamethasone 4 mg/ml Vial ONE (12:56)
[2022-03-04] MEDS ORDERED: Lidocaine 2% PF 5 ML VIAL ONE (12:56)
[2022-03-04] MEDS ORDERED: Dexamethasone 10 MG/ML VIAL ONE (12:56)
[2022-03-04] MEDS ORDERED: Bupivacaine 0.25% 10 ML VIAL ONE (12:56)
[2022-03-04] MEDS ORDERED: Iopamidol-M 300 61% 15 ML VIAL ONE (12:56)
[2022-03-04] MEDS ORDERED: Sodium Chloride 0.9% (PF) 10 ML VIAL ONE (12:56)
[2022-03-04] MEDS: HumaLOG 300 UNITS/3 ML VIAL SC PRN ×2 (16:40→22:30)
[2022-03-04] MEDS ORDERED: Insulin Glargine 30 UNITS/0.3 ML VIAL SC SCH (16:45)
[2022-03-04] MEDS: Zolpidem Tartrate 5 MG TAB PO PRN (22:27)
[2022-03-04] MEDS: Leflunomide 10 mg Tablet PO SCH (22:27)
[2022-03-04] MEDS: Pramipexole Di-HCl 0.25 MG TAB PO SCH (22:28)
[2022-03-04] MEDS: Nebivolol HCl 5 MG TAB PO SCH (22:28)
[2022-03-04] MEDS: Atorvastatin Calcium 10 MG TAB PO SCH (22:29)
[2022-03-04] MEDS: Transdermal Patch Removal TOP SCH (23:47)
[2022-03-05] MEDS: Morphine 4 MG/ML VIAL SLOW IVP PRN ×4 (00:07→14:22)
[2022-03-05] MEDS: Cyclobenzaprine 10 MG TAB PO PRN (01:08)
[2022-03-05] MEDS: HYDROcodone/Acetaminophen 10/325 mg Tablet PO PRN (02:19)
[2022-03-05] MEDS: HumaLOG 300 UNITS/3 ML VIAL SC PRN ×4 (05:36→20:17)
[2022-03-05] MEDS: Lisinopril/Hydrochlorothiazide 20 mg/12.5 mg Tablet PO SCH (09:48)
[2022-03-05] MEDS: Diclofenac 1% 100 GM GEL TP SCH ×4 (09:52→20:12)
[2022-03-05] MEDS: Glimepiride 4 MG TAB PO SCH (09:52)
[2022-03-05] MEDS: sulfaSALAzine 500 MG TAB PO SCH ×2 (09:53→20:13)
[2022-03-05] MEDS: Enoxaparin Sodium 40 MG/0.4 ML SYRINGE SC SCH (09:54)
[2022-03-05] MEDS: Empagliflozin 25 MG TAB PO SCH (09:54)
[2022-03-05] MEDS: Gabapentin 300 MG CAP PO SCH ×2 (09:55→20:14)
[2022-03-05] MEDS: Lidocaine 5% Patch TD SCH (09:55)
[2022-03-05] MEDS: DULoxetine 30 MG CAP PO SCH (10:07)
[2022-03-05] MEDS ORDERED: Insulin Glargine 30 UNITS/0.3 ML VIAL SC SCH (11:30)
[2022-03-05] MEDS: oxyCODONE 5 MG TAB PO PRN ×2 (17:12→22:12)
[2022-03-05] MEDS: Ketorolac Tromethamine 30 MG/ML VIAL IVP SCH (18:30)
[2022-03-05] MEDS: Leflunomide 10 mg Tablet PO SCH (20:14)
[2022-03-05] MEDS: Pramipexole Di-HCl 0.25 MG TAB PO SCH (20:14)
[2022-03-05] MEDS: Nebivolol HCl 5 MG TAB PO SCH (20:14)
[2022-03-05] MEDS: Atorvastatin Calcium 10 MG TAB PO SCH (20:15)
[2022-03-05] MEDS: Zolpidem Tartrate 5 MG TAB PO PRN (20:25)
[2022-03-05] MEDS: Transdermal Patch Removal TOP SCH (22:07)
[2022-03-06] MEDS: Ketorolac Tromethamine 30 MG/ML VIAL IVP SCH ×3 (00:29→12:33)
[2022-03-06] MEDS: oxyCODONE 5 MG TAB PO PRN ×4 (03:00→20:21)
[2022-03-06] MEDS: HumaLOG 300 UNITS/3 ML VIAL SC PRN ×3 (06:14→20:23)
[2022-03-06] MEDS: Glimepiride 4 MG TAB PO SCH (08:33)
[2022-03-06] MEDS: DULoxetine 30 MG CAP PO SCH (09:09)
[2022-03-06] MEDS: Gabapentin 300 MG CAP PO SCH ×2 (09:10→20:22)
[2022-03-06] MEDS: Empagliflozin 25 MG TAB PO SCH (09:10)
[2022-03-06] MEDS: Lisinopril/Hydrochlorothiazide 20 mg/12.5 mg Tablet PO SCH (09:11)
[2022-03-06] MEDS: sulfaSALAzine 500 MG TAB PO SCH ×2 (09:11→20:21)
[2022-03-06] MEDS: Diclofenac 1% 100 GM GEL TP SCH ×4 (09:12→20:20)
[2022-03-06] MEDS: Enoxaparin Sodium 40 MG/0.4 ML SYRINGE SC SCH (09:13)
[2022-03-06] MEDS: Lidocaine 5% Patch TD SCH (09:14)
[2022-03-06] MEDS: Pramipexole Di-HCl 0.25 MG TAB PO SCH (20:21)
[2022-03-06] MEDS: Leflunomide 10 mg Tablet PO SCH (20:22)
[2022-03-06] MEDS: Atorvastatin Calcium 10 MG TAB PO SCH (20:23)
[2022-03-06] MEDS: Nebivolol HCl 5 MG TAB PO SCH (23:20)
[2022-03-06] MEDS: Transdermal Patch Removal TOP SCH (23:21)
[2022-03-06] MEDS: Zolpidem Tartrate 5 MG TAB PO PRN (23:46)
[2022-03-07] MEDS: oxyCODONE 5 MG TAB PO PRN ×4 (04:27→20:05)
[2022-03-07 05:58] LABS: Hemoglobin 12.3 g/dL (12.0-16.0); Platelet Count 187 thou/uL (130-400)
[2022-03-07] MEDS: HumaLOG 300 UNITS/3 ML VIAL SC PRN ×3 (06:37→16:37)
[2022-03-07] MEDS: Cyclobenzaprine 10 MG TAB PO PRN (06:37)
[2022-03-07] MEDS: Gabapentin 300 MG CAP PO SCH ×2 (08:37→21:54)
[2022-03-07] MEDS: DULoxetine 30 MG CAP PO SCH (08:38)
[2022-03-07] MEDS: sulfaSALAzine 500 MG TAB PO SCH ×2 (08:38→21:54)
[2022-03-07] MEDS: Lisinopril/Hydrochlorothiazide 20 mg/12.5 mg Tablet PO SCH (08:38)
[2022-03-07] MEDS: Glimepiride 4 MG TAB PO SCH (08:38)
[2022-03-07] MEDS: Diclofenac 1% 100 GM GEL TP SCH ×4 (08:39→21:53)
[2022-03-07] MEDS: Enoxaparin Sodium 40 MG/0.4 ML SYRINGE SC SCH (08:39)
[2022-03-07] MEDS: Lidocaine 5% Patch TD SCH (08:39)
[2022-03-07] MEDS: Empagliflozin 25 MG TAB PO SCH (08:42)
[2022-03-07] MEDS: Sodium Chloride 0.9% 1,000 ML IV SCH (11:28)
[2022-03-07] MEDS: Pramipexole Di-HCl 0.25 MG TAB PO SCH (21:54)
[2022-03-07] MEDS: Nebivolol HCl 5 MG TAB PO SCH (21:55)
[2022-03-07] MEDS: Leflunomide 10 mg Tablet PO SCH (21:55)
[2022-03-07] MEDS: Atorvastatin Calcium 10 MG TAB PO SCH (21:55)
[2022-03-07] MEDS: Zolpidem Tartrate 5 MG TAB PO PRN (22:00)
[2022-03-07] MEDS: Transdermal Patch Removal TOP SCH (23:52)
[2022-03-08] MEDS: Sodium Chloride 0.9% 1,000 ML IV SCH ×2 (00:53→12:46)
[2022-03-08] MEDS: oxyCODONE 5 MG TAB PO PRN ×6 (00:53→22:39)
[2022-03-08] MEDS: Lidocaine 5% Patch TD SCH (09:07)
[2022-03-08] MEDS: Enoxaparin Sodium 40 MG/0.4 ML SYRINGE SC SCH (09:08)
[2022-03-08] MEDS: Empagliflozin 25 MG TAB PO SCH (09:08)
[2022-03-08] MEDS: Gabapentin 300 MG CAP PO SCH ×2 (09:09→21:28)
[2022-03-08] MEDS: sulfaSALAzine 500 MG TAB PO SCH ×2 (09:09→21:27)
[2022-03-08] MEDS: Glimepiride 4 MG TAB PO SCH (09:09)
[2022-03-08] MEDS: DULoxetine 30 MG CAP PO SCH (09:09)
[2022-03-08] MEDS: Diclofenac 1% 100 GM GEL TP SCH ×4 (09:09→21:28)
[2022-03-08] MEDS: HumaLOG 300 UNITS/3 ML VIAL SC PRN ×2 (12:47→21:31)
[2022-03-08] MEDS: Leflunomide 10 mg Tablet PO SCH (21:27)
[2022-03-08] MEDS: Atorvastatin Calcium 10 MG TAB PO SCH (21:28)
[2022-03-08] MEDS: Nebivolol HCl 5 MG TAB PO SCH (21:28)
[2022-03-08] MEDS: Pramipexole Di-HCl 0.25 MG TAB PO SCH (21:28)
[2022-03-08] MEDS: Transdermal Patch Removal TOP SCH (21:36)
[2022-03-08] MEDS: Zolpidem Tartrate 5 MG TAB PO PRN (22:41)
[2022-03-09] MEDS: Sodium Chloride 0.9% 1,000 ML IV SCH (02:16)
[2022-03-09] MEDS: oxyCODONE 5 MG TAB PO PRN ×6 (02:22→23:14)
[2022-03-09 07:00] LABS: Anion Gap 12 mmol/L (10-20); BUN (Urea Nitrogen) 22 mg/dL (9.8-20.1); Calc. Creatinine Clearance 156 mL/min (70-130); Calcium 9.3 mg/dL (7.8-10.44); Carbon Dioxide 23 mmol/L (22-29); Chloride 106 mmol/L (98-107); Estimated GFR 88; Glucose 168 mg/dL (70-105); Potassium 4.3 mmol/L (3.5-5.1); Sodium 137 mmol/L (136-145)
[2022-03-09] MEDS: Diclofenac 1% 100 GM GEL TP SCH ×4 (07:55→21:11)
[2022-03-09] MEDS: Enoxaparin Sodium 40 MG/0.4 ML SYRINGE SC SCH (07:56)
[2022-03-09] MEDS: DULoxetine 30 MG CAP PO SCH (07:56)
[2022-03-09] MEDS: Glimepiride 4 MG TAB PO SCH (07:57)
[2022-03-09] MEDS: Empagliflozin 25 MG TAB PO SCH (07:57)
[2022-03-09] MEDS: Gabapentin 300 MG CAP PO SCH ×2 (07:57→21:11)
[2022-03-09] MEDS: sulfaSALAzine 500 MG TAB PO SCH ×2 (07:57→21:10)
[2022-03-09] MEDS: Lidocaine 5% Patch TD SCH (07:58)
[2022-03-09] MEDS: HumaLOG 300 UNITS/3 ML VIAL SC PRN (11:13)
[2022-03-09] MEDS: Nebivolol HCl 5 MG TAB PO SCH (21:10)
[2022-03-09] MEDS: Leflunomide 10 mg Tablet PO SCH (21:10)
[2022-03-09] MEDS: Atorvastatin Calcium 10 MG TAB PO SCH (21:10)
[2022-03-09] MEDS: Zolpidem Tartrate 5 MG TAB PO PRN (21:14)
[2022-03-09] MEDS: Transdermal Patch Removal TOP SCH (21:18)
[2022-03-10] MEDS: oxyCODONE 5 MG TAB PO PRN ×5 (03:41→21:19)
[2022-03-10 05:20] LABS: Anion Gap 13 mmol/L (10-20); BUN (Urea Nitrogen) 19 mg/dL (9.8-20.1); Calc. Creatinine Clearance 154 mL/min (70-130); Calcium 9.6 mg/dL (7.8-10.44); Carbon Dioxide 26 mmol/L (22-29); Chloride 104 mmol/L (98-107); Estimated GFR 87; Glucose 147 mg/dL (70-105); Potassium 4.3 mmol/L (3.5-5.1); Sodium 139 mmol/L (136-145)
[2022-03-10] MEDS: DULoxetine 30 MG CAP PO SCH (07:52)
[2022-03-10] MEDS: Gabapentin 300 MG CAP PO SCH ×2 (07:52→21:22)
[2022-03-10] MEDS: Glimepiride 4 MG TAB PO SCH (07:52)
[2022-03-10] MEDS: sulfaSALAzine 500 MG TAB PO SCH ×2 (07:53→21:23)
[2022-03-10] MEDS: Enoxaparin Sodium 40 MG/0.4 ML SYRINGE SC SCH (07:53)
[2022-03-10] MEDS: Lidocaine 5% Patch TD SCH (07:53)
[2022-03-10] MEDS: Empagliflozin 25 MG TAB PO SCH (07:53)
[2022-03-10] MEDS: Diclofenac 1% 100 GM GEL TP SCH ×4 (09:14→21:20)
[2022-03-10] MEDS: HumaLOG 300 UNITS/3 ML VIAL SC PRN (16:26)
[2022-03-10 20:40] VITALS: TEMP 98.5
[2022-03-10] MEDS: Pramipexole Di-HCl 0.25 MG TAB PO SCH (21:22)
[2022-03-10] MEDS: Nebivolol HCl 5 MG TAB PO SCH (21:23)
[2022-03-10] MEDS: Atorvastatin Calcium 10 MG TAB PO SCH (21:23)
[2022-03-10] MEDS: Leflunomide 10 mg Tablet PO SCH (21:24)
[2022-03-10] MEDS: Transdermal Patch Removal TOP SCH (22:38)
[2022-03-10] MEDS: Zolpidem Tartrate 5 MG TAB PO PRN (22:40)
[2022-03-11] MEDS: oxyCODONE 5 MG TAB PO PRN ×4 (02:55→15:46)
[2022-03-11] MEDS: Cyclobenzaprine 10 MG TAB PO PRN (04:43)
[2022-03-11 05:44] LABS: Anion Gap 11 mmol/L (10-20); BUN (Urea Nitrogen) 17 mg/dL (9.8-20.1); Calc. Creatinine Clearance 151 mL/min (70-130); Calcium 9.5 mg/dL (7.8-10.44); Carbon Dioxide 27 mmol/L (22-29); Chloride 103 mmol/L (98-107); Estimated GFR 84; Glucose 189 mg/dL (70-105); Sodium 137 mmol/L (136-145)
[2022-03-11] MEDS: HumaLOG 300 UNITS/3 ML VIAL SC PRN ×2 (06:03→16:14)
[2022-03-11] MEDS: Glimepiride 4 MG TAB PO SCH (07:16)
[2022-03-11] MEDS: Diclofenac 1% 100 GM GEL TP SCH ×3 (08:18→15:51)
[2022-03-11] MEDS: Lidocaine 5% Patch TD SCH (08:18)
[2022-03-11] MEDS: Enoxaparin Sodium 40 MG/0.4 ML SYRINGE SC SCH (08:18)
[2022-03-11] MEDS: Empagliflozin 25 MG TAB PO SCH (08:19)
[2022-03-11] MEDS: DULoxetine 30 MG CAP PO SCH (08:19)
[2022-03-11] MEDS: sulfaSALAzine 500 MG TAB PO SCH (08:19)
[2022-03-11] MEDS: Gabapentin 300 MG CAP PO SCH (08:19)
[2022-03-11 11:35] VITALS: BP 135/76
== END 2022-03-11 17:35 | disposition home or self-care (01) | DRG 74 ==
LOC: MSONC 20:04 → OBSVTOIN 20:04
PROVIDERS: ADMIT Internal Medicine; ATTEND Internal Medicine
DX: E11.42 Type 2 diabetes mellitus with diabetic polyneuropathy (principal); N17.9 Acute kidney failure, unspecified; M45.7 Ankylosing spondylitis of lumbosacral region; Z20.822 Contact with and (suspected) exposure to COVID-19; I10 Essential (primary) hypertension; E78.5 Hyperlipidemia, unspecified; G47.00 Insomnia, unspecified; G47.33 Obstructive sleep apnea (adult) (pediatric); G89.29 Other chronic pain; K59.00 Constipation, unspecified; Z96.651 Presence of right artificial knee joint; Z99.89 Dependence on other enabling machines and devices; Z88.1 Allergy status to other antibiotic agents; Z88.8 Allergy status to other drugs, medicaments and biological substances; Z79.899 Other long term (current) drug therapy; Z79.84 Long term (current) use of oral hypoglycemic drugs; Z79.51 Long term (current) use of inhaled steroids; Z98.1 Arthrodesis status
CPT/HCPCS: 36415; 36416; 72158; 80048; 80053; 82565; 83036; 85014; 85018; 85025; 85049; 85610; 85730; 87811; A9579; J1100; J1170; J1650; J1815; J1885; J2001; J2270; J7050; Q9967; S0020; U0003; U0005

== ENCOUNTER 2022-03-28 13:46 | Emergency (ER) | payer BC ==
[2022-03-28 14:41] LABS: #Eosinphils 0.2 thou/uL (0.0-0.7); #Lymphocytes 1.9 thou/uL (1.20-3.40); #Neutrophils 3.6 thou/uL (1.40-6.50); %Basophils 0.7 % (0.0-1.0); %Eosinophils 3.2 % (0.0-10.0); %Lymphocytes 28.4 % (21.0-51.0); %Monocytes 14.3 % (0.0-10.0); %Neutrophils 53.3 % (42.0-75.0); Hemoglobin 12.9 g/dL (12.0-16.0); Mean Corpuscular HGB CONC 33.5 g/dL (32.0-36.0); Mean Corpuscular Hemoglobin 30.7 pg (27.0-31.0); Mean Corpuscular Volume 91.4 fl (78.0-98.0); Mean Platelet Volume 9.1 fL (7.4-10.4); Platelet Count 259 10x3/uL (130-400); RBC Distribution Width 12.6 % (11.5-14.5); Red Blood Cell (RBC) Count 4.19 mill/uL (4.20-5.40); White Blood Cell (WBC) Count 6.8 10x3/uL (4.8-10.8)
[2022-03-28] MEDS ORDERED: HYDROcodone/Acetaminophen 10/325 mg Tablet ONE (14:45)
[2022-03-28 14:58] LABS: Anion Gap 15 mmol/L (10-20); BUN (Urea Nitrogen) 17 mg/dL (9.8-20.1); CRP (Inflammatory) 2.88 mg/dL (= or < 0.5); Calc. Creatinine Clearance 0 mL/min (70-130); Calcium 10.6 mg/dL (7.8-10.44); Carbon Dioxide 26 mmol/L (22-29); Chloride 100 mmol/L (98-107); Estimated GFR 77; Glucose 206 mg/dL (70-105); Potassium 4.5 mmol/L (3.5-5.1); Sodium 136 mmol/L (136-145)
[2022-03-28 16:11] LABS: Bilirubin Negative (Negative); Blood, Urine Negative (Negative); Clarity Clear (Clear); Glucose, Urine (Dipstick) Greater than 1000 mg/dL (Negative); Ketone, Urine Negative (Negative); Leukocyte Negative Leu/uL (Negative); Nitrite Negative (Negative); Protein, Urine (Dipstick) Negative (Neg-Trace); Specific Gravity, Urine 1.023 (1.002-1.036); Urobilinogen Normal mg/dL (Less than 2)
== END 2022-03-28 17:26 | disposition home or self-care (01) ==
LOC: ERS 13:46
DX: M51.27 Other intervertebral disc displacement, lumbosacral region (principal); E11.22 Type 2 diabetes mellitus with diabetic chronic kidney disease; N18.30 Chronic kidney disease, stage 3 unspecified; I12.9 Hypertensive chronic kidney disease with stage 1 through stage 4 chronic kidney disease, or unspecified chronic kidney disease; E78.5 Hyperlipidemia, unspecified; E11.42 Type 2 diabetes mellitus with diabetic polyneuropathy; Z79.899 Other long term (current) drug therapy; Z79.4 Long term (current) use of insulin
CPT/HCPCS: 36415; 72148; 80048; 81003; 85025; 86140

== ENCOUNTER 2022-07-12 16:38 | Emergency (ER) | payer BC ==
[2022-07-12 17:47] LABS: #Eosinphils 0.1 thou/uL (0.0-0.7); #Lymphocytes 1.3 thou/uL (1.20-3.40); #Monocytes 0.7 thou/uL (0.11-0.59); #Neutrophils 4.9 thou/uL (1.40-6.50); %Basophils 0.2 % (0.0-1.0); %Eosinophils 1.8 % (0.0-10.0); %Lymphocytes 18.5 % (21.0-51.0); %Monocytes 10.5 % (0.0-10.0); Hemoglobin 12.8 g/dL (12.0-16.0); Mean Corpuscular HGB CONC 33.6 g/dL (32.0-36.0); Mean Corpuscular Volume 89.5 fl (78.0-98.0); Platelet Count 257 10x3/uL (130-400); Red Blood Cell (RBC) Count 4.27 mill/uL (4.20-5.40); White Blood Cell (WBC) Count 7.1 10x3/uL (4.8-10.8)
[2022-07-12 18:06] LABS: ALT (SGPT) 71 U/L (8-55); AST (SGOT) 85 U/L (5-34); Alkaline Phosphatase 140 U/L (40-110); Anion Gap 13 mmol/L (10-20); BUN (Urea Nitrogen) 18 mg/dL (9.8-20.1); Bilirubin, Total 0.6 mg/dL (0.2-1.2); Calc. Creatinine Clearance 0 mL/min (70-130); Calcium 9.3 mg/dL (7.8-10.44); Carbon Dioxide 21 mmol/L (22-29); Chloride 105 mmol/L (98-107); Estimated GFR 77; Globulin 3.6 g/dL (2.4-3.5); Glucose 197 mg/dL (70-105); Potassium 4.4 mmol/L (3.5-5.1); Protein, Total 7.6 g/dL (6.0-8.3); Sodium 135 mmol/L (136-145)
[2022-07-12] MEDS ORDERED: Morphine 4 MG/ML VIAL ONE (18:59)
[2022-07-12 19:17] LABS: #Eosinphils 0.1 thou/uL (0.0-0.7); #Lymphocytes 1.6 thou/uL (1.20-3.40); #Monocytes 0.9 thou/uL (0.11-0.59); #Neutrophils 4.3 thou/uL (1.40-6.50); %Basophils 0.3 % (0.0-1.0); %Eosinophils 1.6 % (0.0-10.0); %Lymphocytes 22.6 % (21.0-51.0); %Monocytes 12.9 % (0.0-10.0); %Neutrophils 62.7 % (42.0-75.0); Hemoglobin 13.1 g/dL (12.0-16.0); Mean Corpuscular HGB CONC 32.9 g/dL (32.0-36.0); Mean Corpuscular Hemoglobin 29.6 pg (27.0-31.0); Mean Corpuscular Volume 90.1 fl (78.0-98.0); Mean Platelet Volume 7.9 fL (7.4-10.4); Platelet Count 293 10x3/uL (130-400); Red Blood Cell (RBC) Count 4.44 mill/uL (4.20-5.40); White Blood Cell (WBC) Count 6.9 10x3/uL (4.8-10.8)
[2022-07-12] MEDS ORDERED: Prochlorperazine 10 MG/2 ML VIAL IVP SCH (19:30)
[2022-07-12 19:37] LABS: Bilirubin Negative (Negative); Blood, Urine Negative (Negative); Clarity Clear (Clear); Glucose, Urine (Dipstick) Greater than 1000 mg/dL (Negative); Ketone, Urine Negative (Negative); Leukocyte Negative Leu/uL (Negative); Nitrite Negative (Negative); Protein, Urine (Dipstick) Negative (Neg-Trace); Specific Gravity, Urine 1.028 (1.002-1.036); Urobilinogen Normal mg/dL (Less than 2)
[2022-07-12 19:39] LABS: ALT (SGPT) 75 U/L (8-55); AST (SGOT) 95 U/L (5-34); Albumin 4.1 g/dL (3.5-5.0); Alkaline Phosphatase 140 U/L (40-110); Anion Gap 12 mmol/L (10-20); BUN (Urea Nitrogen) 18 mg/dL (9.8-20.1); Bilirubin, Total 0.5 mg/dL (0.2-1.2); Calc. Creatinine Clearance 0 mL/min (70-130); Calcium 9.4 mg/dL (7.8-10.44); Carbon Dioxide 26 mmol/L (22-29); Chloride 103 mmol/L (98-107); Estimated GFR 77; Globulin 3.8 g/dL (2.4-3.5); Glucose 144 mg/dL (70-105); Potassium 4.2 mmol/L (3.5-5.1); Protein, Total 7.9 g/dL (6.0-8.3); Sodium 137 mmol/L (136-145)
== END 2022-07-12 21:00 | disposition home or self-care (01) ==
LOC: ERS 16:38
DX: L03.116 Cellulitis of left lower limb (principal); E78.5 Hyperlipidemia, unspecified; E11.22 Type 2 diabetes mellitus with diabetic chronic kidney disease; N18.30 Chronic kidney disease, stage 3 unspecified; I12.9 Hypertensive chronic kidney disease with stage 1 through stage 4 chronic kidney disease, or unspecified chronic kidney disease; Z79.899 Other long term (current) drug therapy
CPT/HCPCS: 36415; 80053; 81003; 85025; 96361; 96365; 96375; J0780; J2270

== ENCOUNTER 2022-07-18 08:35 | Emergency (ER) | payer BC | END 2022-07-18 11:42 | disposition home or self-care (01) | LOC: ERS 08:35 | DX: S30.851A Superficial foreign body of abdominal wall, initial encounter (principal); E11.9 Type 2 diabetes mellitus without complications; W46.1XXA Contact with contaminated hypodermic needle, initial encounter; Z79.899 Other long term (current) drug therapy; Z79.4 Long term (current) use of insulin | CPT/HCPCS: 74018 ==

== ENCOUNTER 2022-07-21 00:53 | Observation (INO) | payer BC ==
[2022-07-21] MEDS ORDERED: Acetaminophen 325 MG TAB PO PRN (02:05)
[2022-07-21] MEDS ORDERED: Ondansetron PF 4 MG/2 ML Vial IVP PRN (02:05)
[2022-07-21] MEDS ORDERED: Senokot S 8.6-50 MG TAB PO PRN (02:05)
[2022-07-21] MEDS ORDERED: Ondansetron ODT 4 MG TAB PO PRN (02:05)
[2022-07-21] MEDS: HYDROcodone/Acetaminophen 10/325 mg Tablet PO PRN ×4 (02:55→22:04)
[2022-07-21 07:23] LABS: #Eosinphils 0.6 thou/uL (0.0-0.7); #Lymphocytes 1.5 thou/uL (1.20-3.40); #Monocytes 0.9 thou/uL (0.11-0.59); #Neutrophils 5.1 thou/uL (1.40-6.50); %Basophils 0.4 % (0.0-1.0); %Eosinophils 6.9 % (0.0-10.0); %Lymphocytes 18.4 % (21.0-51.0); %Monocytes 11.4 % (0.0-10.0); %Neutrophils 62.9 % (42.0-75.0); Hemoglobin 13.4 g/dL (12.0-16.0); Mean Corpuscular HGB CONC 32.7 g/dL (32.0-36.0); Mean Corpuscular Hemoglobin 29.9 pg (27.0-31.0); Mean Corpuscular Volume 91.3 fl (78.0-98.0); Mean Platelet Volume 7.9 fL (7.4-10.4); Platelet Count 292 10x3/uL (130-400); RBC Distribution Width 13.3 % (11.5-14.5); Red Blood Cell (RBC) Count 4.48 mill/uL (4.20-5.40); White Blood Cell (WBC) Count 8.1 10x3/uL (4.8-10.8)
[2022-07-21 07:35] LABS: Anion Gap 16 mmol/L (10-20); BUN (Urea Nitrogen) 18 mg/dL (9.8-20.1); Calc. Creatinine Clearance 0 mL/min (70-130); Calcium 9.7 mg/dL (7.8-10.44); Carbon Dioxide 24 mmol/L (22-29); Chloride 101 mmol/L (98-107); Estimated GFR 70; Glucose 226 mg/dL (70-105); Potassium 4.3 mmol/L (3.5-5.1); Sodium 137 mmol/L (136-145)
[2022-07-21] MEDS: Cholecalciferol 1,000 UNITS (25 MCG) TAB PO SCH (08:18)
[2022-07-21] MEDS: DULoxetine 30 MG CAP PO SCH (08:19)
[2022-07-21] MEDS: Gabapentin 400 MG CAP PO SCH ×2 (08:19→20:02)
[2022-07-21] MEDS: Famotidine 20 MG TAB PO SCH ×2 (08:19→20:03)
[2022-07-21] MEDS: Empagliflozin 25 MG TAB PO SCH (08:20)
[2022-07-21] MEDS: sulfaSALAzine 500 MG TAB PO SCH ×2 (08:20→16:35)
[2022-07-21] MEDS: Lisinopril/Hydrochlorothiazide 20 mg/12.5 mg Tablet PO SCH (08:27)
[2022-07-21] MEDS ORDERED: Non-Formulary Item 1 EACH (Gabapentin [Gabapentin] 600 MG Tablet) PO SCH (09:00)
[2022-07-21] MEDS ORDERED: FLU VACC QS2022-23(6MOS UP)/PF 60 MCG/0.5 ML SYRINGE IM ONE (09:00)
[2022-07-21] MEDS ORDERED: Dextrose 50% Abboject 50 ML SYRINGE SLOW IVP PRN (09:22)
[2022-07-21] MEDS ORDERED: Dextrose 5% in Water 1,000 ML IV PRN (09:22)
[2022-07-21] MEDS ORDERED: Cyclobenzaprine 10 MG TAB PO PRN (09:22)
[2022-07-21] MEDS ORDERED: LISDEXAMFETAMINE DIMESYLATE PO PRN (09:22)
[2022-07-21] MEDS: Icosapent Ethyl 1 GM CAPSULE PO SCH ×2 (09:34→16:35)
[2022-07-21] MEDS: HumaLOG 300 UNITS/3 ML VIAL SC PRN ×2 (13:06→16:35)
[2022-07-21] MEDS ORDERED: VANCOMYCIN 2 GRAM/500 ML BAG 2 GM in Premix Bag 1 BAG IVPB SCH (15:30)
[2022-07-21] MEDS: Cefepime 2 GM in Sodium Chloride 0.9% 100 ML IVPB SCH (18:04)
[2022-07-21] MEDS: oxyCODONE ER 10 MG TAB PO SCH (20:03)
[2022-07-21] MEDS ORDERED: Pramipexole Di-HCl 0.25 MG TAB PO SCH (21:00)
[2022-07-21] MEDS ORDERED: Insulin Glargine 30 UNITS/0.3 ML VIAL SC SCH (21:00)
[2022-07-21] MEDS ORDERED: Leflunomide 10 mg Tablet PO SCH (21:00)
[2022-07-21] MEDS ORDERED: LIRAGLUTIDE SC SCH (21:00)
[2022-07-21] MEDS ORDERED: Atorvastatin Calcium 10 MG TAB PO SCH (21:00)
[2022-07-21] MEDS ORDERED: Nebivolol HCl 5 MG TAB PO SCH (21:00)
[2022-07-21] MEDS ORDERED: Zolpidem Tartrate 5 MG TAB PO SCH (22:00)
[2022-07-22] MEDS: HYDROcodone/Acetaminophen 10/325 mg Tablet PO PRN ×3 (04:45→18:16)
[2022-07-22] MEDS: HumaLOG 300 UNITS/3 ML VIAL SC PRN ×3 (04:46→17:33)
[2022-07-22] MEDS: Cefepime 2 GM in Sodium Chloride 0.9% 100 ML IVPB SCH ×2 (04:57→17:01)
[2022-07-22] MEDS: Vancomycin 1.5 GRAM/300 ML BAG 1.5 GM in Premix Bag 1 BAG IVPB SCH ×2 (05:50→17:34)
[2022-07-22 07:22] LABS: #Basophils 0.1 thou/uL (0.0-0.2); #Eosinphils 0.5 thou/uL (0.0-0.7); #Lymphocytes 1.3 thou/uL (1.20-3.40); #Monocytes 0.8 thou/uL (0.11-0.59); #Neutrophils 3.2 thou/uL (1.40-6.50); %Basophils 0.9 % (0.0-1.0); %Eosinophils 8.7 % (0.0-10.0); %Lymphocytes 22.5 % (21.0-51.0); %Monocytes 13.9 % (0.0-10.0); Hemoglobin 12.4 g/dL (12.0-16.0); Mean Corpuscular HGB CONC 32.2 g/dL (32.0-36.0); Mean Corpuscular Hemoglobin 29.3 pg (27.0-31.0); Mean Corpuscular Volume 90.8 fl (78.0-98.0); Mean Platelet Volume 8.1 fL (7.4-10.4); Platelet Count 270 10x3/uL (130-400); RBC Distribution Width 13.2 % (11.5-14.5); Red Blood Cell (RBC) Count 4.24 mill/uL (4.20-5.40); White Blood Cell (WBC) Count 5.9 10x3/uL (4.8-10.8)
[2022-07-22 07:37] LABS: Anion Gap 14 mmol/L (10-20); BUN (Urea Nitrogen) 19 mg/dL (9.8-20.1); Calc. Creatinine Clearance 134 mL/min (70-130); Calcium 9.2 mg/dL (7.8-10.44); Carbon Dioxide 24 mmol/L (22-29); Chloride 103 mmol/L (98-107); Estimated GFR 72; Glucose 241 mg/dL (70-105); Potassium 4.1 mmol/L (3.5-5.1); Sodium 137 mmol/L (136-145)
[2022-07-22] MEDS: DULoxetine 30 MG CAP PO SCH (09:02)
[2022-07-22] MEDS: Gabapentin 400 MG CAP PO SCH (09:02)
[2022-07-22] MEDS: Famotidine 20 MG TAB PO SCH (09:02)
[2022-07-22] MEDS: Cholecalciferol 1,000 UNITS (25 MCG) TAB PO SCH (09:03)
[2022-07-22] MEDS: oxyCODONE ER 10 MG TAB PO SCH (09:04)
[2022-07-22] MEDS: sulfaSALAzine 500 MG TAB PO SCH ×2 (09:05→17:01)
[2022-07-22] MEDS: Icosapent Ethyl 1 GM CAPSULE PO SCH ×2 (09:06→17:01)
[2022-07-22] MEDS: Lisinopril/Hydrochlorothiazide 20 mg/12.5 mg Tablet PO SCH (09:13)
[2022-07-22] MEDS: Empagliflozin 25 MG TAB PO SCH (09:20)
[2022-07-22 18:10] VITALS: BP 110/76; TEMP 99
[2022-07-22] MEDS ORDERED: Zolpidem Tartrate 5 MG TAB PO SCH (21:00)
== END 2022-07-22 19:40 | disposition home or self-care (01) ==
LOC: INTOOBSV 00:53 → T4-A 00:53
PROVIDERS: ADMIT Student in an Organized Health Care Education/Training Program; ATTEND Internal Medicine
DX: E11.628 Type 2 diabetes mellitus with other skin complications (principal); L03.032 Cellulitis of left toe; G89.29 Other chronic pain; L84 Corns and callosities; Z20.822 Contact with and (suspected) exposure to COVID-19; S92.311A Displaced fracture of first metatarsal bone, right foot, initial encounter for closed fracture; E11.42 Type 2 diabetes mellitus with diabetic polyneuropathy; I10 Essential (primary) hypertension; E78.5 Hyperlipidemia, unspecified; G47.30 Sleep apnea, unspecified; Z79.4 Long term (current) use of insulin; Z79.84 Long term (current) use of oral hypoglycemic drugs; Z79.85 Long-term (current) use of injectable non-insulin antidiabetic drugs; Z79.891 Long term (current) use of opiate analgesic; Z79.899 Other long term (current) drug therapy; Z88.8 Allergy status to other drugs, medicaments and biological substances; X58.XXXA Exposure to other specified factors, initial encounter
CPT/HCPCS: 36415; 36416; 80048; 85025; 96374; 96376; G0378; J0692; J1815; J3370; J3490; U0003; U0005

== ENCOUNTER 2022-07-26 12:21 | Outpatient (CLI) | payer BC | END 2022-07-26 12:22 | disposition home or self-care (01) | LOC: SCSRAD 12:21 | PROVIDERS: ATTEND Nurse Practitioner Family | DX: M25.552 Pain in left hip (principal) | CPT/HCPCS: 36415; 80074 ==

== ENCOUNTER 2022-09-15 14:09 | Outpatient (CLI) | payer BC | END 2022-09-15 14:10 | disposition home or self-care (01) | LOC: ULT 14:09 | PROVIDERS: ATTEND Internal Medicine | DX: E11.621 Type 2 diabetes mellitus with foot ulcer (principal); L97.519 Non-pressure chronic ulcer of other part of right foot with unspecified severity; I73.9 Peripheral vascular disease, unspecified | CPT/HCPCS: 93922 ==

== ENCOUNTER 2023-10-03 12:34 | Outpatient (CLI) | payer BC | END 2023-10-03 12:35 | disposition home or self-care (01) | LOC: BICMRI 12:34 | PROVIDERS: ATTEND Nurse Practitioner Family | DX: M54.16 Radiculopathy, lumbar region (principal); M48.061 Spinal stenosis, lumbar region without neurogenic claudication; M48.07 Spinal stenosis, lumbosacral region; M40.56 Lordosis, unspecified, lumbar region | CPT/HCPCS: 72148 ==

== ENCOUNTER 2023-10-05 11:48 | Outpatient (CLI) | payer BC | END 2023-10-05 11:49 | disposition home or self-care (01) | LOC: BICRAD 11:48 | PROVIDERS: ATTEND Internal Medicine | DX: R05.1 Acute cough (principal) | CPT/HCPCS: 71046 ==